=== PATIENT | female | born 1935 | race Two or more races ===

== ENCOUNTER 2023-10-30 17:49 | Inpatient (IN) | payer MEDICARE, OTHER, SELFPAY ==
[2023-10-30] VITALS (18 sets, daily range): BP systolic 132–172; BP diastolic 69–100
--- NOTE | 2023-10-30 16:20 | ED.GENMED ---
History of Present Illness
<Moshe Valerio PA-C - Last Filed: 10/31/23 15:05>
General
Chief Complaint: DVT/Possible Blood Clot
Source: patient
Time Seen by Provider: 10/30/23 15:56
Travel History
Have you had any contact with someone who has COVID-19?: No
Do you have any symptoms of coronavirus? Fever > 100 degrees, chills, cough, shortness of breath, sore throat, loss of taste or smell, muscle aches, or headache?: No
History of Present Illness
History of Present Illness:
88-year-old female with history of peripheral arterial disease presents complaining with onset of right leg pain starting last night. Starts in her foot and radiates up the leg. She has had a history of arterial clots requiring surgery. She is on
Eliquis 2 mg twice a day. She denies chest pain or shortness of breath. No fever. No other complaints at this time
Past History
<Moshe Valerio PA-C - Last Filed: 10/31/23 15:05>
Past History
ED Past Medical History: Arrthythmia and Other (AFIB); Negative NIDDM or Seizures
Social History
Tobacco: Non-smoker
Alcohol: None
Drug: None
Living: with family
Employment: Retired
Family History
Family History: Other (n/c)
Phy Exam
<Moshe Valerio PA-C - Last Filed: 10/31/23 15:05>
Physical Exam
Physical Exam:
General: Well-appearing female no acute respiratory distress
HEENT: Normocephalic atraumatic
Heart: Regular rate and rhythm holosystolic ejection murmur noted
Lungs: Clear to auscultation bilaterally no wheezing
Extremities: Right foot is cold to the touch. Pulses are not dopplerable to the foot.
Skin: No rash
Course
<Moshe Valerio PA-C - Last Filed: 10/31/23 15:05>
Orders/Labs/Results
Orders:
Orders
10/30/23 13:51
Venous Doppler Lwr Ext Rt [US Periph Venous LOWER Ext RT] Urgent
Comment:
Reason For Exam: pain and discoloration
10/30/23 Dinner
NPO
Allow oral meds: Yes
Allow clear liquids: No
10/30/23 16:20
CT Abd Aorta Angio W/ Run Off Urgent
Comment:
Reason For Exam: cold right foot, delayed images as well
10/30/23 16:38
Complete Blood Count/With Diff Urgent
Comprehensive Metabolic Panel Urgent
10/30/23 16:[address] Non Medication Order As Directed
Physician Order: PTT 6 hours after initial start of Heparin infusion
Above order entered?: Yes
10/30/23 16:41
Electrocardiogram (*1) Urgent
Reason for Study: Atrial Fibrillation
10/30/23 16:45
PTT Urgent
Comment: Obtain baseline before beginning heparin infusion if not already collected
10/30/23 16:55
Heparin 4,000 units IV NOW STA
Nursing to Place Non Medication Order As Directed
Physician Order: PTT 6 hours after initial start of Heparin infusion
Above order entered?: Yes
10/30/23 17:00
Heparin [id number] Units/250 ml 25,000 units in 250 ml IV PER PROTOCOL
Weight to be used for heparin protocol in kilograms (kg):: 49.6
Protocol:: Vascular Surgery
PTT Goal Range to be used:: PTT 73 to 111 seconds
Order type:: Initial
INITIAL Infusion Dose (UNITS/KG/hr) & then follow protocol:: 18 units/kg/hr
Infusion Dose in UNITS/hr & then follow protocol (UNITS/hr):: 900
INFUSION RATE in mL/hr & then follow protocol (mL/hr):: 9
PTT less than or equal to 64 seconds:: Notify Ordering Provider. obtain orders for rate increase &
possible bolus
PTT 64.1 to 72.9 seconds:: Increase rate by 100 units/hr (+ 1 mL/hr)
PTT 73 to 111 seconds:: Target Range. No change in rate.
PTT 111.1 to 130.9 seconds:: Decrease rate by 100 units/hr (- 1 mL/hr)
PTT 131 to 199.9 seconds:: HOLD for 1 hour. Then decrease rate by 200 units/hr (- 2 mL/hr)
PTT greater than or equal to 200 seconds:: STOP INFUSION. Notify Ordering provider to obtain further orders.
Lab follow-up:: Each change, PTT q6h until 2 consecutive are therapeutic. Then PTT
daily.
10/30/23 17:32
Admit/Transfer Patient As Directed
Co-Sign Provider:
Level of Care: Inpatient admission
Assign to:: Telemetry
Physician / Group: hospitalist-Eduardo
Diagnosis: acute limb ischemia
Reason for Telemetry: Arrhythmia
Date to Stop Telemetry: 11/02/23
Time to Stop Telemetry: 11:00
Reason for Hospitalization: needs OR
Expected length of stay greater than two midnights?: Yes
ELOS- Estimated Length of Stay in days: 3
I certify the patient meets the requirements for IP care: Yes
10/30/23 17:34
Code Status As Directed
Resuscitation Status: Full Code
10/30/23 19:41
Bisacodyl [Dulcolax] 10 mg RECTAL [id number] PRN
Docusate W/Senna [Senokot-S] 1 tablet PO BIDPRN PRN
HYDROmorphone [Dilaudid] 0.5 mg IV Q4HPRN PRN
Ondansetron Injectable [Zofran] 4 mg IV Q6HPRN PRN
Polyethylene Glycol Powder [Miralax] 17 grams PO DAILYPRN PRN
10/30/23 19:41
Vascular Surgery Consult Urgent
Consulting Provider: Cruz Calix
Was physician already notified: Yes
Heparin Protocol- PTT Orders As Directed
PTT per Heparin protocol: -Obtain CBC and baseline PTT - if not already collected.
-Obtain PTT 6 hours from start of infusion. Then, every 6 hours until 2 consecutive
PTT's are therapeutic. Then, PTT Daily.
-With each rate change, obtain PTT every 6 hours until 2 consecutive PTT's are
therapeutic. Then, PTT Daily.
Activity As Directed
Activity Level: Bedrest
Notify MD As Directed
Notify physician if: PTT is greater than or equal to 200.
Vital Signs As Directed
Frequency: Per unit guidelines
10/30/23 20:00
Docusate Sodium [Colace] 100 mg PO BID
10/30/23 22:00
Temazepam [Restoril] 30 mg PO HS
10/30/23 23:24
PTT Urgent
10/31/23 01:09
Complete Blood Count/No Diff IN AM
Comprehensive Metabolic Panel IN AM
Magnesium IN AM
10/31/23 08:00
Polyethylene Glycol Powder [Miralax] 17 grams PO DAILY
11/02/23 11:00
DC Protocol for Telemetry ONCE
Abnormal Lab Results
10/30/23
16:38
RBC 3.69 L 10^6/uL
(4.20-5.40)
Hgb 11.6 L g/dL
(12.0-16.0)
Hct 35.3 L %
(37.0-47.0)
MCH 31.4 H pg
(27.0-31.0)
MCHC 32.9 L g/dL
(33.0-37.0)
RDW 17.0 H %
(11.5-14.5)
Glucose 111 H mg/dl
(70-99)
Albumin 3.3 L g/dl
(3.5-5.0)
10/30/23 16:38
10/30/23 16:38
Vital Signs
Initial and Last Documented VS:
Initial Vital Signs
Pulse Resp BP Pulse Ox
93 18 140/92 99
10/30/23 13:48 10/30/23 13:48 10/30/23 13:48 10/30/23 13:48
Last Documented Vital Signs
Temp Pulse Resp BP Pulse Ox
97.7 F 68 16 130/75 98
10/31/23 13:00 10/31/23 06:30 10/31/23 06:30 10/31/23 06:30 10/31/23 09:04
tuan;Canelo Dallas, DO - Last Filed: 10/30/23 22:57>
Orders/Labs/Results
Orders:
Orders
10/30/23 13:51
Venous Doppler Lwr Ext Rt [US Periph Venous LOWER Ext RT] Urgent
Comment:
Reason For Exam: pain and discoloration
10/30/23 Dinner
NPO
Allow oral meds: Yes
Allow clear liquids: No
10/30/23 16:20
CT Abd Aorta Angio W/ Run Off Urgent
Comment:
Reason For Exam: cold right foot, delayed images as well
10/30/23 16:38
Complete Blood Count/With Diff Urgent
Comprehensive Metabolic Panel Urgent
10/30/23 16:[address] Non Medication Order As Directed
Physician Order: PTT 6 hours after initial start of Heparin infusion
Above order entered?: Yes
10/30/23 16:41
Electrocardiogram (*1) Urgent
Reason for Study: Atrial Fibrillation
10/30/23 16:45
PTT Urgent
Comment: Obtain baseline before beginning heparin infusion if not already collected
10/30/23 16:55
Heparin 4,000 units IV NOW STA
Nursing to Place Non Medication Order As Directed
Physician Order: PTT 6 hours after initial start of Heparin infusion
Above order entered?: Yes
10/30/23 17:00
Heparin [id number] Units/250 ml 25,000 units in 250 ml IV PER PROTOCOL
Weight to be used for heparin protocol in kilograms (kg):: 49.6
Protocol:: Vascular Surgery
PTT Goal Range to be used:: PTT 73 to 111 seconds
Order type:: Initial
INITIAL Infusion Dose (UNITS/KG/hr) & then follow protocol:: 18 units/kg/hr
Infusion Dose in UNITS/hr & then follow protocol (UNITS/hr):: 900
INFUSION RATE in mL/hr & then follow protocol (mL/hr):: 9
PTT less than or equal to 64 seconds:: Notify Ordering Provider. obtain orders for rate increase &
possible bolus
PTT 64.1 to 72.9 seconds:: Increase rate by 100 units/hr (+ 1 mL/hr)
PTT 73 to 111 seconds:: Target Range. No change in rate.
PTT 111.1 to 130.9 seconds:: Decrease rate by 100 units/hr (- 1 mL/hr)
PTT 131 to 199.9 seconds:: HOLD for 1 hour. Then decrease rate by 200 units/hr (- 2 mL/hr)
PTT greater than or equal to 200 seconds:: STOP INFUSION. Notify Ordering provider to obtain further orders.
Lab follow-up:: Each change, PTT q6h until 2 consecutive are therapeutic. Then PTT
daily.
10/30/23 17:32
Admit/Transfer Patient As Directed
Co-Sign Provider:
Level of Care: Inpatient admission
Assign to:: Telemetry
Physician / Group: hospitalist-Eduardo
Diagnosis: acute limb ischemia
Reason for Telemetry: Arrhythmia
Date to Stop Telemetry: 11/02/23
Time to Stop Telemetry: 11:00
Reason for Hospitalization: needs OR
Expected length of stay greater than two midnights?: Yes
ELOS- Estimated Length of Stay in days: 3
I certify the patient meets the requirements for IP care: Yes
10/30/23 17:34
Code Status As Directed
Resuscitation Status: Full Code
10/30/23 19:41
Bisacodyl [Dulcolax] 10 mg RECTAL [id number] PRN
Docusate W/Senna [Senokot-S] 1 tablet PO BIDPRN PRN
HYDROmorphone [Dilaudid] 0.5 mg IV Q4HPRN PRN
Ondansetron Injectable [Zofran] 4 mg IV Q6HPRN PRN
Polyethylene Glycol Powder [Miralax] 17 grams PO DAILYPRN PRN
10/30/23 19:41
Vascular Surgery Consult Urgent
Consulting Provider: Cruz Calix
Was physician already notified: Yes
Heparin Protocol- PTT Orders As Directed
PTT per Heparin protocol: -Obtain CBC and baseline PTT - if not already collected.
-Obtain PTT 6 hours from start of infusion. Then, every 6 hours until 2 consecutive
PTT's are therapeutic. Then, PTT Daily.
-With each rate change, obtain PTT every 6 hours until 2 consecutive PTT's are
therapeutic. Then, PTT Daily.
Activity As Directed
Activity Level: Bedrest
Notify MD As Directed
Notify physician if: PTT is greater than or equal to 200.
Vital Signs As Directed
Frequency: Per unit guidelines
10/30/23 20:00
Docusate Sodium [Colace] 100 mg PO BID
10/30/23 22:00
Temazepam [Restoril] 30 mg PO HS
10/30/23 23:24
PTT Urgent
10/31/23 01:09
Complete Blood Count/No Diff IN AM
Comprehensive Metabolic Panel IN AM
Magnesium IN AM
10/31/23 08:00
Polyethylene Glycol Powder [Miralax] 17 grams PO DAILY
11/02/23 11:00
DC Protocol for Telemetry ONCE
Abnormal Lab Results
10/30/23
16:38
RBC 3.69 L 10^6/uL
(4.20-5.40)
Hgb 11.6 L g/dL
(12.0-16.0)
Hct 35.3 L %
(37.0-47.0)
MCH 31.4 H pg
(27.0-31.0)
MCHC 32.9 L g/dL
(33.0-37.0)
RDW 17.0 H %
(11.5-14.5)
Glucose 111 H mg/dl
(70-99)
Albumin 3.3 L g/dl
(3.5-5.0)
10/30/23 16:38
10/30/23 16:38
Vital Signs
Initial and Last Documented VS:
Initial Vital Signs
Pulse Resp BP Pulse Ox
93 18 140/92 99
10/30/23 13:48 10/30/23 13:48 10/30/23 13:48 10/30/23 13:48
Last Documented Vital Signs
Temp Pulse Resp BP Pulse Ox
97.7 F 68 16 130/75 98
10/31/23 13:00 10/31/23 06:30 10/31/23 06:30 10/31/23 06:30 10/31/23 09:04
<Moshe Valerio PA-C - Last Filed: 10/31/23 15:05>
MDM/Problems Addressed
Differential Diagnosis Includes:
Painful cold right foot. Question possible ischemic foot. Discussed with vascular surgery immediately upon evaluating the patient. They recommended CT angio of the leg with runoff. This was ordered. Labs pending. Discussed with emergency room
attending who saw the patient as well
<Moshe Valerio PA-C - Last Filed: 10/31/23 15:05>
*Critical Care Note
Total Time (30-74mins, 75-104mins- exclusive of procedures): Not Applicable
<Moshe Valerio PA-C - Last Filed: 10/31/23 15:05>
Update Note
Update Note:
CTA did not serial pending with runoff. Labs ordered heparin ordered.
ED Attending Note
<Moshe Valerio PA-C - Last Filed: 10/31/23 15:05>
-
Portions of this chart may have been created with voice recognition software.� Occasional wrong word or��sound alike� substitutions may have occurred due to the inherent limitations of voice recognition software.
<Canelo Dallas, - Last Filed: 10/30/23 22:57>
ED Attending Note
Patient seen and examined by attending physician: Yes
I performed the substantive portion of visit, reviewed & personally made and approve the management plan that is documented in note by myself or CLAIRE.: Yes
ED Attending Note:
88 year old female with right lower ext pain and coldness. Pt has hx of vascular surgery both legs in the past. Pt does not appear to be taking Eliquis. Pain is quit significant.
VSS
Right leg cold to touch from mid-leg to foot. Foot is pale. No palpable or doppler pulses. Poor cap refill.
Case discussed with vascular---> CTA, heparin.
CTA shows what appears to be an acute arterial occlusion at the level of the popliteal artery. Patient be taken to the OR by vascular surgery.
Critical care time 40 minutes
Critical care statement: A total of 40 minutes of critical care time was provided for this patient. This includes management of unstable vital signs, evaluation of the patient at bedside, reviewing the patient's pertinent medical records, discussion
with consultants, review of old EKGs and review of pertinent medical records. This time with separate from time utilized to perform the aforementioned documented procedures
Discharge Plan
Departure
Patient Disposition: Admit
Date of Disposition: 10/30/23
Time of Disposition: 16:47
Admit to: IVU
Presentation/result/management discussed w/ accepting MD/DO: Hospitalist
Discharge Problem:
Acute lower extremity ischemia
Interventions
Interventions:
*Risk Screen - Suicide Last Done: 10/30/23 22:00
*General Assessment Last Done: 10/30/23 13:48
*Neglect/Abuse Screening Last Done: 10/30/23 13:48
ED- Fall Risk Assessment Last Done: 10/30/23 16:53
*ED COVID-19 Vaccine History Last Done: 10/30/23 22:00
*Nursing Disposition Last Done: 10/30/23 18:15
ED- Cardiac Assessment Last Done: 10/30/23 16:51
ED- Pulmonary Assessment Last Done: 10/30/23 16:51
ED-Peripheral Vascular Assessment Last Done: 10/30/23 16:51
ED-Skin Assessment Last Done: 10/30/23 16:51
Discharge Date and Time
Discharge Date/Time: 10/30/23 18:15
--- NOTE | 2023-10-30 16:50 | W.PN.UPDATE ---
Update Note
Progress Note Update
Seen and evaluated in the emergency room. Known to me with history of right lower extremity thrombectomy likely secondary to atrial fibrillation. Difficult thrombectomy with right popliteal/anterior tibial/TP trunk/peroneal thrombectomy. This was
done in July 2022 (15 months ago). Had been seen in the office a few months postop but not seen since then. Now presents with acute symptoms of right foot pain/coolness. Found in emergency room to have no pulses. Patient notes to me currently
her pain has slightly improved since she has been here. She is not having significant pain currently she notes it as a very light mild pain. Denies any weakness.
On exam/she is awake and alert. Right lower extremity with 2+ palpable femoral pulse. Nonpalpable distally. Ankle and foot are cool (distal calf and foot). In the elevation position there is pallor in the foot but not complete pallor. There is
slight pinkness at the toes but slowed capillary refill and moderate pallor. She has good motor function and I assessed her sensation (had her close her eyes) and she has full sensation intact.
Duplex reviewed.
Plan/ Likely acute right lower extremity limb ischemia. Will obtain CTA of the aorta with runoff stat. Then can determine course of action (thrombolysis versus thrombectomy). Heparin drip now also.
[2023-10-30 16:57] LABS: % Basophils 0.6 % (0-2); % Eosinophils 0.5 % (0-6); % Immature Granulocytes 0.3 % (0-0.5); % Lymphocytes 30.5 % (20.5-51.1); % Monocytes 6.6 % (1.7-9.3); % Neutrophils 61.5 % (42.2-75.2); Absolute Basophils 0.1 10^3/uL (0-0.2); Absolute Lymphocytes 2.4 10^3/uL (1.2-3.4); Absolute Monocytes 0.5 10^3/uL (0.1-0.6); Absolute Neutrophils 4.8 10^3/uL (1.4-6.5); Hematocrit 35.3 % (37.0-47.0); Hemoglobin 11.6 g/dL (12.0-16.0); Mean Corp Hgb Conc. 32.9 g/dL (33.0-37.0); Mean Corpuscular Hgb 31.4 pg (27.0-31.0); Mean Corpuscular Volume 95.7 fL (81.0-99.0); Mean Platelet Volume 9.8 fL (7.4-10.4); Nucleated Red Blood Cells % 0 %; Platelet Count 364 10^3/uL (130-400); Red Blood Cell Count 3.69 10^6/uL (4.20-5.40); White Blood Cell Count 7.8 10^3/uL (4.8-10.8)
[2023-10-30] MEDS: HEPARIN 4000 UNITS IV (17:11)
[2023-10-30] MEDS: HEPARIN 25000 UNITS/250 ML IV (17:12)
[2023-10-30 17:16] LABS: ALT (SGPT) 11 U/L (0-35); AST (SGOT) 28 U/L (14-36); Albumin 3.3 g/dl (3.5-5.0); Alkaline Phosphatase 111 U/L (38-126); Blood Urea Nitrogen 9 mg/dl (7-17); Calcium 8.7 mg/dl (8.4-10.2); Carbon Dioxide 24 mmol/L (22-30); Chloride 105 mmol/L (98-107); Glucose 111 mg/dl (70-99); Potassium 3.9 mmol/L (3.5-5.1); Sodium 135 mmol/L (135-145); Total Bilirubin 0.9 mg/dl (0.2-1.3); Total Protein 6.9 g/dl (6.3-8.2); eGFR > 60.00
--- NOTE | 2023-10-30 17:39 | HPS.HSE ---
Family Physician
-
Family Physician: Ernesto Mae
Chief Complaint
-
cold, painful leg
History of Present Illness
Patient is an 88-year-old female with a complex medical history which includes permanent atrial fibrillation not on anticoagulation with a previous history of right lower extremity thrombectomy for an acute ischemic leg who presented with complaints
of right lower extremity numbness, pain, swelling, and cold. This has been worsening over the past 2 nights. Last evening she had significant pain and was concentrated more on that. She states that she is able to ambulate but not well. Workup in
the emergency room finds her to have a right foot cool without pulses. Patient is being seen by vascular and is being admitted. Likely will go to the operating room tonight.
Medical History
Past Medical History
Past Medical History: Reports Other
Additional Past Medical History:
History of right thrombectomy for acute ischemic leg
Permanent atrial fibrillation not on anticoagulation
Essential hypertension
History of diastolic congestive heart failure and pulmonary hypertension
Obesity with gastric bypass
History of hyponatremia
History of left femur and wrist fractures
Past Surgical History: Reports Other
Additional Past Surgical History:
Right thrombectomy with right popliteal/anterior tibial/TP trunk/peritoneal thrombectomy done July 2022
Gastric [id number]
Left hip hemiarthroplasty
Left distal radius fracture with closed reduction
Social History
Tobacco: Non-smoker
Alcohol: None
Drug: None
Family History
Family History: Not pertinent
Allergies / Home Medications
Allergies reflects when Allergies were last updated in [facility].
Home Medications with original date entered in [facility]
Allergy/Medication List:
Allergies
Allergy/AdvReac Type Severity Reaction Status Date / Time
No Known Allergies Allergy Verified 10/30/23 13:47
Home Medications
metoprolol succinate 25 mg tablet,extended release 24 hr 12.5 mg (1/2 x 25 mg) PO DAILY 30 days #15 tabs 07/31/23
temazepam 15 mg capsule 30 mg (2 x 15 mg) PO HS 30 days #60 caps 07/31/23
acetaminophen 325 mg tablet 650 mg PO Q6HPRN PRN mild pain 10/30/23
amlodipine 5 mg tablet 5 mg PO DAILY 10/30/23
isosorbide mononitrate 60 mg tablet,extended release 24 hr 60 mg PO DAILY PRN chest pain 10/30/23
oxycodone-acetaminophen 10 mg-325 mg tablet 1 tab PO DAILY 10/30/23
Review of Systems
-
History Source: Patient
A 12 point ROS was completed and negative except as noted: Yes
Constitutional: Reports No Symptoms
EENT: Reports No Symptoms
Respiratory: Reports Trouble Breathing (Occasionally)
Cardiac: Reports Chest Pain (Occasionally)
Abdomen/GI: Reports No Symptoms
: Reports No Symptoms
Musculoskeletal: Reports Other (None, cold, painful right leg/foot)
Skin: Reports No Symptoms
Neurological: Reports No Symptoms
Endocrine: Reports No Symptoms
Hematologic/Lymphatic: Reports No Symptoms
Psych: Reports No Symptoms
Physical Exam
Vital Signs
Vital Signs
Pulse Resp BP Pulse Ox
93 18 140/92 98
10/30/23 13:48 10/30/23 13:48 10/30/23 13:48 10/30/23 16:51
Physical Exam
General: Well Developed, Well Nourished and No Apparent Distress
HEENT: NormoCephalic, Anicteric and Atraumatic; No Oxygen
Respiratory: Clear; No Wheezes, Rales, Rhonchi or Crackles
Cardiac: Irregular Rhythm
GI: Soft, Non Tender, Non Distended and Normal Bowel Sounds
Musculoskeletal: No Clubbing, Cyanosis (Right foot slightly dusky in color, cold to touch, no pulses palpated) and No Edema
Neuro: Awake and Alert
Psych: Calm
Laboratory Results
-
10/30/23 16:38
10/30/23 16:38
Laboratory Results
APTT Cancelled 10/30/23 16:55
Total Bilirubin 0.9 mg/dl (0.2-1.3) 10/30/23 16:38
AST 28 U/L (14-36) 10/30/23 16:38
ALT 11 U/L (0-35) 10/30/23 16:38
Alkaline Phosphatase 111 U/L (38-126) 10/30/23 16:38
Impression/Plan
-
Patient is an 88-year-old female
Acute right lower extremity limb ischemia--ultrasound was done which was negative for DVT--CAT scan done in the emergency department is pending at this time--she has already been seen by vascular surgery--ADMIT--remain n.p.o. with IV fluids as
patient likely will go to the operating room--will likely need ICU postop if she does go--we will defer that to vascular--continue IV heparin
Permanent atrial fibrillation--rate controlled--continue metoprolol as able--she is not on any oral anticoagulation at this point
Previous history of peripheral vascular disease with acute ischemic leg and previous thrombectomy--not on aspirin or other blood thinners
Coronary artery disease--continue isosorbide and metoprolol
History of diastolic congestive heart failure with pulmonary hypertension--patient is not in exacerbation by my exam and does not appear volume overloaded
Essential hypertension--continue Norvasc, metoprolol as able
DVT prophylaxis--IV heparin
CODE STATUS--full code
--- NOTE | 2023-10-30 19:35 | CON.VAS ---
Consultation
Consultation Request
Performing Provider: Yogi
Reason for Consultation: Lower extremity arterial occlusion
Medical History
-
Chief Complaint: Right foot/leg pain
History of Present Illness:
Known to me with history of right lower extremity thrombectomy likely secondary to atrial fibrillation. Difficult thrombectomy with right popliteal/anterior tibial/TP trunk/peroneal thrombectomy. This was done in July 2022 (15 months ago). Had
been seen in the office a few months postop but not seen since then. Now presents with acute symptoms of right foot pain/coolness. Found in emergency room to have no pulses. Patient notes to me currently her pain has slightly improved since she
has been here. She is not having significant pain currently she notes it as a very light mild pain. Denies any weakness.
On exam/she is awake and alert. Right lower extremity with 2+ palpable femoral pulse. Nonpalpable distally. Ankle and foot are cool (distal calf and foot). In the elevation position there is pallor in the foot but not complete pallor. There is
slight pinkness at the toes but slowed capillary refill and moderate pallor. She has good motor function and I assessed her sensation (had her close her eyes) and she has full sensation intact.
Duplex reviewed.
Past Medical History
Past Medical History: Arrhythmias (afib-off eliquis unsure why?), CAD, CHF, HTN and Other (PAD)
Past Surgical History: Other (thrombectomy with right popliteal/anterior tibial/TP trunk/peroneal artery 08/12, Gastric [id number], Left hip hemiarthroplasty, Left distal radius fracture with closed reduction)
Social History
Tobacco: Non-Smoker
Alcohol: None
Drug: None
Living: With Family
Employment: Retired
Family History
Family History: Reviewed & Not Pertinent
Allergies / Home Medications
Allergy/AdvReac Type Severity Reaction Status Date / Time
No Known Allergies Allergy Verified 10/30/23 13:47
�Medication �Instructions �Recorded �Confirmed �Type
metoprolol succinate 25 mg 12.5 mg (1/2 x 25 mg) PO DAILY 30 07/31/23 10/30/23 Rx
tablet,extended release 24 hr days #15 tabs
temazepam 15 mg capsule 30 mg (2 x 15 mg) PO HS 30 days 07/31/23 10/30/23 Rx
#60 caps
acetaminophen 325 mg tablet 650 mg PO Q6HPRN PRN mild pain 10/30/23 10/30/23 History
amlodipine 5 mg tablet 5 mg PO DAILY 10/30/23 10/30/23 History
isosorbide mononitrate 60 mg 60 mg PO DAILY PRN chest pain 10/30/23 10/30/23 History
tablet,extended release 24 hr
oxycodone-acetaminophen 10 mg-325 1 tab PO DAILY 10/30/23 10/30/23 History
mg tablet
Review of Systems
-
History Source: Patient
All other systems: Negative unless noted
Constitutional: Reports No Symptoms
EENT: Reports No Symptoms
Respiratory: Reports No Symptoms
Cardiac: Reports No Symptoms
Vascular: Reports Leg Pain / Claudication, Numbness and Tingling
Abdomen/GI: Reports No Symptoms
: Reports No Symptoms
Musculoskeletal: Reports Muscle Pain
Neurological: Reports No Symptoms
Endocrine: Reports No Symptoms
Physical Exam
Vital Signs
Temp Pulse Resp BP Pulse Ox
97.4 F 68 16 130/75 98
10/31/23 07:35 10/31/23 06:30 10/31/23 06:30 10/31/23 06:30 10/31/23 09:04
Lab Results
10/31/23 01:09
Physical Exam
General: No Apparent Distress
HEENT: Normocephalic and Atraumatic
Respiratory: Non Labored Respirations
Cardiac: Negative JVD
GI: Soft and Non Tender
Musculoskeletal: Cyanosis and Edema
Skin: Other (Ankle and foot are cool (distal calf and foot). In the elevation position there is pallor in the foot but not complete pallor. There is slight pinkness at the toes but slowed capillary refill and moderate pallor. She has good motor
function)
Neuro: Awake, Alert and Oriented
Psych: Calm
Pulses: Bilateral Femoral: +2 and Right Posterior Tibial: Doppler (ABSENT)
Assessment / Plan
-
Plan/ Likely acute right lower extremity limb ischemia. Will obtain CTA of the aorta with runoff stat. Then can determine course of action (thrombolysis versus thrombectomy). Heparin drip now also.
[2023-10-30] MEDS: CATHFLO/ACTIVASE 16 MG INF CATH ×2 (19:47→23:18)
[2023-10-30] MEDS: CATHFLO/ACTIVASE 16 ML INF CATH ×2 (19:47→23:18)
--- NOTE | 2023-10-30 20:30 | W.SUR.POST ---
Surgical Immediate Post Op
Note
Pre Op Diagnosis: Lower extremity arterial occlusion
Post Op Diagnosis: Same
Procedure Performed: Right lower extremity lysis catheter placement
Primary Surgeon: MD Angie
Anesthesia: Local and sedation
Estimated Blood Loss: 5 cc
Fluids: See anesthesia flowsheet
Drains/Shunts: None
Specimens/Cultures: None
Doppler/Duplex/Angio (Y/N): Y
Complications: None
Operative Findings: Successful catheter placement
[2023-10-30] MEDS: NORMOSOL-R 1000 IV (20:51)
[2023-10-30] MEDS: NSS 1000 INF CATH (20:54)
[2023-10-30] MEDS: HEPARIN 25000 UNITS/250 ML ART SHEATH (20:55)
[2023-10-30] MEDS: COLACE PO (20:58)
[2023-10-30] MEDS: RESTORIL 30 MG PO (21:52)
--- NOTE | 2023-10-30 22:00 | PTCARENOTE ---
rec`d pt from OR, bedside report given. pt AAOx3,very pleasant. vascular checks started, left PT and DP + with doppler. Right pt/dp absent with doppler. + popliteal on right leg. right leg notably cooler than left. pt can still move toes and feet.
pt denies any pain. left groin sit with sheath. NS running 46/hr with alteplase running at 1. heparin running at 500 or 5mL. q6H Ptt started. a fib on monitor. hr between 70-90s. no edema, afebrile. 2L NC satting at 99%. + BS. jorge draining clear
yellow urine. pt wanted dentures in. pt has top dentures. pt has bruise on left hand from previous fall about a week ago. call prado in reach, safe environment maintained.
[2023-10-31] VITALS (62 sets, daily range): BP systolic 90–162; BP diastolic 53–115; BMI 20.1
[2023-10-31 00:01] LABS: APTT 127.8 Sec (23.4-35.0)
[2023-10-31 01:20] LABS: Hematocrit 32.7 % (37.0-47.0); Hemoglobin 10.6 g/dL (12.0-16.0); Mean Corp Hgb Conc. 32.4 g/dL (33.0-37.0); Mean Corpuscular Hgb 31.5 pg (27.0-31.0); Mean Corpuscular Volume 97.3 fL (81.0-99.0); Mean Platelet Volume 9.7 fL (7.4-10.4); Platelet Count 306 10^3/uL (130-400); Red Blood Cell Count 3.36 10^6/uL (4.20-5.40); White Blood Cell Count 4.8 10^3/uL (4.8-10.8)
[2023-10-31 01:32] LABS: Fibrinogen 372 MG/DL (199-459)
[2023-10-31 01:38] LABS: ALT (SGPT) < 10 U/L (0-35); AST (SGOT) 24 U/L (14-36); Albumin 2.8 g/dl (3.5-5.0); Alkaline Phosphatase 106 U/L (38-126); Blood Urea Nitrogen 7 mg/dl (7-17); Calcium 8.1 mg/dl (8.4-10.2); Carbon Dioxide 23 mmol/L (22-30); Chloride 108 mmol/L (98-107); Estimated Creatinine Clearance 52 ml/min; Glucose 138 mg/dl (70-99); Magnesium 1.8 mg/dl (1.6-2.3); Sodium 134 mmol/L (135-145); Total Bilirubin 0.9 mg/dl (0.2-1.3); Total Protein 6.1 g/dl (6.3-8.2); eGFR > 60.00
[2023-10-31] MEDS: CATHFLO/ACTIVASE 16 ML INF CATH ×2 (02:45→06:40)
[2023-10-31] MEDS: CATHFLO/ACTIVASE 16 MG INF CATH ×2 (02:45→06:40)
--- NOTE | 2023-10-31 04:00 | PTCARENOTE ---
pt reassessed. no changes in pt assessment. call prado in reach.
[2023-10-31 05:58] LABS: PT 14.3 Sec (11.4-14.6)
[2023-10-31] MEDS: MIRALAX PO (07:44)
[2023-10-31] MEDS: COLACE PO ×2 (07:44→21:44)
--- NOTE | 2023-10-31 07:45 | CON.INTV ---
Consultation
Consultation Request
Date/Time Consultation Requested: 10/31/23
Date/Time Consultation Performed: 10/31/23
Reason for Consultation: Critical care
Medical History
-
History of Present Illness:
History obtained from the patient, also reviewing records. Patient is a pleasant 88-year-old female with history of atrial fibrillation, history of right lower extremity thrombectomy July 2022 who presents with 3 days of right leg pain, cold
foot. Patient states prior to that she was doing well. She is on Eliquis therapy. She denies shortness of breath, chest pain, lightheadedness, dizziness, falls or trauma. Upon arrival to [facility], pulse 93, breathing 18, blood
pressure 140/92, 99%. Doppler study without clot. Patient had right lower extremity lysis catheter placed due to lower extremity arterial occlusion confirmed by imaging. Patient was admitted to ICU for further management 10/30/23
Presently she is without chest pain, shortness of breath, nausea, abdominal pain, headaches. Right foot pain has improved. She is lying flat. She was examined earlier this morning
.
PMH: Peripheral arterial disease with prior right lower extremity thrombectomy July 2022, atrial fibrillation on anticoagulation. History of insomnia, valvular disease with tricuspid regurgitation/mitral regurgitation, chronic insomnia, history
of obesity status post bariatric surgery, GERD
Past Medical History
Past Medical History: None (See above)
Past Surgical History: None (See above)
Social History
Tobacco: Non-smoker
Alcohol: None
Drug: None
Personal: Single
Living: Alone
Employment: Retired
Family History
Family History: Reviewed & Not Pertinent
Allergies / Home Medications
Allergies
Allergy/AdvReac Type Severity Reaction Status Date / Time
No Known Allergies Allergy Verified 10/30/23 13:47
Home Medications
�Medication �Instructions �Recorded �Confirmed �Last Taken �Type
metoprolol succinate 25 mg 12.5 mg (1/2 x 25 mg) PO DAILY 30 07/31/23 10/30/23 10/30/23 Rx
tablet,extended release 24 hr days #15 tabs
temazepam 15 mg capsule 30 mg (2 x 15 mg) PO HS 30 days 07/31/23 10/30/23 10/28/23 Rx
#60 caps
acetaminophen 325 mg tablet 650 mg PO Q6HPRN PRN mild pain 10/30/23 10/30/23 10/30/23 History
amlodipine 5 mg tablet 5 mg PO DAILY 10/30/23 10/30/23 10/29/23 History
isosorbide mononitrate 60 mg 60 mg PO DAILY PRN chest pain 10/30/23 10/30/23 10/29/23 History
tablet,extended release 24 hr
oxycodone-acetaminophen 10 mg-325 1 tab PO DAILY 10/30/23 10/30/23 3 Days Ago History
mg tablet ~10/27/23
Review of Systems
-
All other systems: Negative unless noted
Vitals / Labs / Diagnostic Testing
Vital Signs
Temp Pulse Resp BP Pulse Ox
97.4 F 68 16 130/75 99
10/31/23 07:35 10/31/23 06:30 10/31/23 06:30 10/31/23 06:30 10/31/23 06:30
Lab Data
10/31/23 01:09
Laboratory Results
10/30/23 10/30/23 10/30/23
16:45 16:55 18:04
PT
INR
APTT 26.0 Cancelled Cancelled
10/30/23 10/31/23
23:24 05:36
PT 14.3
INR 1.10
APTT 127.8 H
Diagnostic Testing:
Physical Exam
-
HEENT: Normocephalic and Anicteric
Cardiovascular: S1/S2, Irregular Rhythm, Murmur (n), Rub (n), Peripheral Edema (n) and Other (Right lower extremity slightly cooler than the left.)
Respiratory: Wheeze (n), Rales (n), Rhonchi (n) and Non-Labored Respirations
GI: Soft, Non Distended and Non Tender
Neurology: Awake, Alert and Oriented
Skin: Good Color (No clubbing, cyanosis)
General: Comfortable
Assessment
-
88-year-old female with history of peripheral arterial disease with prior right lower extremity thrombectomy July 2022 now presents with right lower extremity arterial occlusion status post catheter placement with tPA/heparin 10/30/23
Acute right lower extremity limb ischemia
s/p arterial thrombolysis
Suction thrombectomy
Balloon angioplasty
Presenting with 3 days of right lower extremity pain and cold extremity
History of right lower extremity limb ischemia in the past
Thrombectomy July 2022
Afib on Eliquis therapy
Conditions present PRODUCT MARKETING INTERN
HTN
Lumbar radiculopathy�
Permanent atrial fibrillation�
Atherosclerotic heart disease of morongo coronary artery without angina pectoris
Moderate mitral regurgitation
Moderate AAS, 1.1 cm
PA pressure 45
GERD
RLS/insomnia
Plan/recommendations
At this time, patient appears to be improved overall
Right foot pain warmer than presentation, pulse is with positive Doppler
Now is status post thrombectomy as above. Patient was examined earlier this morning and again after suction thrombectomy and angioplasty
She denies any chest pain, shortness of breath
Hemoglobin 10.9, stable, platelets stable. Fibrinogen level normal
Moving forward
Continue with IV heparin for now. Lysis catheter has been removed
Hypothermia noted, currently on Bartolo hugger
Continue to monitor blood pressure
EKG reviewed, atrial fibrillation with nonspecific changes
Echocardiogram July 2022 with EF 75%, moderate MR, moderate aortic stenosis valve area 1.1 cm
PA pressure 45, per echo July 2022
Patient apparently noncompliant with Eliquis therapy
Creat at baseline, no history of renal disease
Follow
Follow blood sugars
DVT prophylaxis: On subcutaneous heparin
Reviewed with critical care nursing, respiratory care
TCCT 31 min
Diagnostic Data
CXR 10/30/2023-no acute findings
Echo July 2022:�Normal biventricular size and systolic function without regional wall motion abnormality, EF 75%.�Mild to moderate mitral regurgitation.�Mild to moderate aortic stenosis 1.1 cm.�Moderate to severe tricuspid regurgitation. PA
pressure 45
PFT 12/17/12- FVC 2.05L or 81% of predicted, FEV1 1.55L or 82% of predicted, Ratio was 76%. TLC 3.9L or 85% of predicted, Diffusing capacity 20.9 or 109% of predicted
Reports and relevant images were personally reviewed.
--- NOTE | 2023-10-31 07:54 | W.PN.ANS.POP ---
Anesthesia Post Operative
- Anesthesia Post Op Note
Vital Signs Stable-See Nursing Note: Yes
Airway Patent: Yes
Adequate Pain Control: Yes
Change in Mental Status: No
Current Postoperative Nausea & Vomiting: No
Anesthesia Complications: No
General Anesthetic Recall: No
Unplanned Admission: No
Post Op Hydration Adequate: Yes
--- NOTE | 2023-10-31 08:00 | PTCARENOTE ---
Received pt @ change of shift. Drowsy, awakens to verbal stimuli; Ox3, forgetful @ x's; [place]. Neurovascular checks maintained; R/L LE warm; pt. reports improving sensation in RLE; R foot/toes w decreased sedation/mild pain, denies pain meds. RLE
+popliteal and PT; LLE +DP/PT by Doppler. A fib on monitor. SpO2 98% on 2LNC, weaned to RA and SpO2 maintaining 98%. Hypoactive BS, abd soft/round. NPO status maintained. Cervantes catheter in place w clear/yellow urine. L groin sheath remains in
place, dressing c/d/i. Art sheath transduced, calibrated, and monitored w all ports patent and secured; heparin gtt infusing @ set rate- see flow sheet. NSS and Alteplase infusing via separate port via sheath- see MAR. Normosol infusing @ 80mL
via #20 R AC; #22 L wrist placed. Strict bedrest maintained and pt instructed to keep LLE straight, verbally reports understanding. Instructed on how to report care concerns and call prado in reach.
[2023-10-31 08:24] LABS: APTT 35.7 Sec (23.4-35.0); Fibrinogen 361 MG/DL (199-459); INR 1.17; PT 14.7 Sec (11.4-14.6)
[2023-10-31 08:45] LABS: Hematocrit 33.4 % (37.0-47.0); Hemoglobin 10.9 g/dL (12.0-16.0); Platelet Count 312 10^3/uL (130-400)
--- NOTE | 2023-10-31 08:56 | W.PN.UPDATE ---
Update Note
Progress Note Update
No events overnight
Comfortable
No complaints except she is hungry
No pain
Dopp signals present in the right foot
R foot warm
Motor/sensory grossly intact
Return to OR for angio/lysis check
PJF3
--- NOTE | 2023-10-31 10:00 | PTCARENOTE ---
Report given to vascular ROTOR CASTING MACHINE OPERATOR and ROTOR CASTING MACHINE OPERATOR x 2 to bedside to transport pt. to OR @ 2753. Granddaughter, Nori, to bedside, updated on plan of care. Awaiting pt. return s/p procedure.
--- NOTE | 2023-10-31 11:12 | W.SUR.POST ---
Surgical Immediate Post Op
Note
Pre Op Diagnosis: Arterial occlusion
Post Op Diagnosis: same
Procedure Performed: RLE lysis catheter removal, arteriogram, balloon angioplasty below knee popliteal, TP trunk, PT, AT, peroneal arteries. Penumbra to below knee pop
Primary Surgeon: Helen
Anesthesia: local and sedation
Estimated Blood Loss: 5cc
Fluids: see anesthesia flow sheet
Drains/Shunts: none
Specimens/Cultures: none
Doppler/Duplex/Angio (Y/N): Y
Complications: none
Operative Findings: +peroneal and PT doppler signal
--- NOTE | 2023-10-31 11:39 | CM ---
CM is following with discharge planning.
Reviewed pt's chart, met with pt and spoke to pt's granddaughter Nori.
Pt is an 87 year old female, admitted with primary dx of s/p Right lower extremity lysis catheter placement
Pt reports she lives with a granddaughter in a 2SH, has supportive daughter. 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 No SNF history. Pt was at [place] [facility] in June
2022.
PT and OT will evaluate the pt to determine a level of care at discharge.
Per granddaughter, pt has been receiving Eliquis at home, getting it via mail order and there is no issue with affordability.
PCP: Ernesto Mae
Pharmacy: [facility]
D/C plan: most likely home with [facility] and family support.
CM will follow with discharge plan updates as hospitalization progresses
[2023-10-31] MEDS: NORMOSOL-R IV (12:20)
[2023-10-31] MEDS: NSS 1000 IV (12:57)
--- NOTE | 2023-10-31 14:10 | OR.RPT ---
Operative Report
Operative Report
Date of Operation: 10/31/2023
Pre Op Diagnosis: Acute limb ischemia, right lower extremity status post initiation of arterial thrombolysis
Post Op Diagnosis: Acute limb ischemia, right lower extremity status post initiation of arterial thrombolysis
Procedure:
1.) Right lower extremity arteriogram/lysis check
2.) Penumbra suction thrombectomy to right popliteal artery (Light[place] 7 catheter)
3.) Balloon angioplasty of right anterior tibial artery (2.5 mm x 150 mm proximal/mid; 2 mm x 40 mm distal)
4.) Balloon angioplasty of right dorsalis pedis artery (2 mm x 40 mm)
5.) Balloon angioplasty of right peroneal artery (2.5 mm x 150 mm)
6.) Balloon angioplasty of right posterior tibial artery (2 mm x 120 mm)
7.) Balloon angioplasty of right tibioperoneal trunk (3.5 mm x 60 mm)
8.) Balloon angioplasty of right below the knee popliteal artery (3.5 mm x 60 mm)
Surgeon: Ceciloi Cervantes III, MD
Yarn Dyer: General
Anesthesia: Sedation with local
Fluoroscopy:
32.2 min
41 mGy
7.55 Gy.cm2
Complications: None
Estimated Blood Loss: 100 cc
History and Indications for Procedure: 88-year-old female with acute limb ischemia of her right lower extremity. She is status post initiation of right lower extremity thrombolysis via Cragg Jonathan catheter on 10/30/2023. She was brought back to
the operating room today for a lysis check and possible endovascular intervention.
Procedure in Detail: Kylee Foreman was correctly identified and placed supine on the operating table. After adequate induction of anesthesia the left groin, sheath and existing lysis catheter were prepped and draped in the usual sterile fashion. A
timeout was performed with the nursing and anesthesia staff confirming the patient's identity as well as the nature and laterality of the procedure.
A hydrophilic tip 0.014 wire was placed through the existing 4 [place] Cragg Jonathan catheter and placed in the proximal peroneal artery. The catheter was removed. A right lower extremity arteriogram was then performed which demonstrated the
following:
RIGHT LOWER EXTREMITY: Patent common femoral artery superficial femoral artery and popliteal artery above the knee. There was significant residual filling defect and occlusion involving the popliteal artery behind the knee and below the knee.
Significant tibial disease was identified in all 3 tibial arteries with poor flow distally and no identifiable flow in the foot.
ENDOVASCULAR INTERVENTION: Systemic heparin was administered. Exchanged out for a Storq wire. Exchanged out for a 7 Fr 45 cm sheath over a Storq wire. Exchanged back out for a 0.014 wire. Under roadmap guidance I brought into position the
[place] 7 Penumbra catheter. This was positioned in the popliteal artery behind the knee. Suction thrombectomy was then performed on the popliteal artery with the Penumbra catheter. Several passes were made with the catheter and obvious
clot was aspirated into the filter. Following this a subsequent arteriogram demonstrated a significantly improved result with a patent popliteal artery and tibioperoneal trunk. Once again demonstrated was occlusive disease in all 3 tibial arteries.
Given that the wire was in the peroneal artery I started with this. A 0.014 Quickcross catheter was advanced over the wire and the wire was advanced into the distal peroneal artery. An arteriogram confirmed position in the distal peroneal artery.
A 2.5 mm x 150 mm angioplasty balloon was then used to perform angioplasty on the entire length of peroneal artery from the ankle to its origin. Subsequent arteriogram demonstrated a good technical result with a patent peroneal artery and flow to
the ankle. Next I selected the anterior tibial artery using a 0.014 wire and 0.014 Quickcross catheter. The catheter and wire were advanced distally. Proper position was confirmed through the catheter with an arteriogram. 4 mg of tPA was
injected directly through the Quickcross catheter into the distal anterior tibial artery to run into the foot. The hydrophilic tip wire was advanced into the foot. The 2.5 mm x 150 mm angioplasty balloon was used to treat the anterior tibial
artery from the ankle to its origin using multiple inflations to cover this area. A 2 mm x 40 mm angioplasty balloon was used to treat the smaller diameter segment of distal anterior tibial artery and the dorsalis pedis artery onto the foot.
Subsequent arteriogram demonstrated a patent anterior tibial artery with flow across the ankle into the foot through the DP. Lastly I focused my attention on the posterior tibial artery. Under roadmap guidance using the 0.014 wire and Quickcross
catheter I selected the posterior tibial artery. The wire and catheter were advanced distally and the wire was positioned behind the ankle. A 2 mm x 120 mm angioplasty balloon was used to treat the entire length of posterior tibial artery from the
ankle to its origin. Subsequent arteriogram demonstrated a patent posterior tibial artery but there was distal occlusion of the plantar branches distal to the ankle. An additional 4 mg of tPA was injected through a Quickcross catheter positioned
in the distal posterior tibial artery to flow into the foot. Subsequent arteriograms demonstrated residual stenosis in the tibioperoneal trunk and below-knee popliteal artery. Under roadmap guidance I then positioned a 3.5 mm x 60 mm angioplasty
balloon and treated the tibioperoneal trunk as well as the below-knee popliteal artery.
COMPLETION ARTERIOGRAM: Patent popliteal artery and all 3 tibial vessels with flow across the ankle into the foot.
Satisfied with this result we concluded the procedure. The sheath tip was pulled back into the left external iliac artery. The wire was exchanged out for a Storq wire and advanced into the abdominal aorta. The soft tissue around the access site
was spread gently with a hemostat. Local anesthesia was infiltrated around the puncture site. A Pro-glide closure device was utilized to close the left femoral artery access however the device failed when cinching down the knots. Wire access had
already been relinquished. Therefore direct manual pressure was held over the access site for 30 minutes. Hemostasis was achieved. A sterile dressing was applied.
The patient tolerated the procedure well and was taken to the recovery area in stable condition.
Attestation: I was present and responsible for the entire procedure.
Signed:
Cecilio Cervantes III, MD
[facility] Vascular Surgery
[phone] (cell)
--- NOTE | 2023-10-31 14:15 | W.PN.UPDATE ---
Update Note
Progress Note Update
FemStop removed at bedside. Palpable PT and DP pulses to the right foot. Heparin drip ordered, no bolus. Continue Bartolo hugger
--- NOTE | 2023-10-31 14:41 | W.PN.HOSP.TC ---
Today's Communication/Plan
-
IV heparin
follow vascular sx recs
Assessment / Plan
Assessment / Plan
Assessment:
Acute right lower extremity limb ischemia
- CTA: Complete occlusion of the right popliteal artery, similar to prior. The right anterior and posterior tibial arteries are completely occluded throughout the lower leg, progressed from prior. The right peroneal artery is patent to level of the
ankle, below which is not well visualized, possibly occluded.
- Vascular consulting
- s/p RLE lysis cath placement 10/29 and RLE lysis catheter removal, arteriogram, balloon angioplasty below knee popliteal, TP trunk, PT, AT, peroneal arteries. Penumbra to below knee pop on 10/30
- on IV Heparin - requires intensive monitoring
Hypothermia
- continue Bartolo Hugger
Permanent atrial fibrillation
- on IV Heparin - requires intensive monitoring. Eventually resume Eliquis
- continue Metoprolol when cleared
Previous history of peripheral vascular disease with acute ischemic leg and previous thrombectomy
- apparently forgot to take Eliquis
Coronary artery disease
- continue isosorbide and metoprolol
History of diastolic congestive heart failure with pulmonary hypertension--patient is not in exacerbation
- monitor I/Os, weights
Essential hypertension
- continue Norvasc, metoprolol as able
DVT ppx: IV HEparin
Code: Full
Anticipated Discharge: 24 - 48 hours
Subjective/Interval History
-
Date of Service: October 31, 2023
feels well no complaints
Objective Data
-
Labs:
Laboratory Results
10/31/23 10/31/23 10/31/23
05:36 07:59 13:15
Hgb 10.9 L Cancelled
Hct 33.4 L Cancelled
Plt Count 312 Cancelled
PT 14.3 14.7 H Cancelled
INR 1.10 1.17 Cancelled
APTT 35.7 H Cancelled
10/31/23
19:15
Hgb Cancelled
Hct Cancelled
Plt Count Cancelled
PT Cancelled
INR Cancelled
APTT Cancelled
Vital Signs:
Vital Signs
Temp Pulse Resp BP Pulse Ox
97.7 F 68 16 130/75 98
10/31/23 13:00 10/31/23 06:30 10/31/23 06:30 10/31/23 06:30 10/31/23 09:04
I&O
10/30/23 10/31/23 11/01/23
06:59 06:59 06:59
Intake Total 1310 / 1441 262 / 262
Output Total 1275 / 1575 750 / 750
Balance 35 / -134 -488 / -488
Physical Exam
-
General: No Apparent Distress
HEENT: Normocephalic and Atraumatic
Respiratory: Negative Wheezes or Rales
Cardiac: Regular Rhythm and S1/S2
GI: Soft
Neuro: AO x 3
Hematologic / Lymphatic: No Lymphadenopathy
Psych: Calm
Data Reviewed
-
Critical Care Time (in minutes): 42
Labs: Labs Reviewed by me
[2023-10-31] MEDS: HEPARIN 25000 UNITS/250 ML IV (15:44)
[2023-10-31] MEDS: LOW STRENGTH ASPIRIN 81 MG PO (15:57)
--- NOTE | 2023-10-31 16:33 | PTCARENOTE ---
Received pt back from vascular OR @ 1215, neurovascular checks competed w Dr. Cervantes and vascular team @ bedside on ICU arrival- see flow sheet. Fleeting R DP by Doppler, Dr. Cervantes aware. Fem stop removed by vascular HEAD TENNIS COACH @ 1400 . Neurovascular
checks maintained per orders. Bartolo hugger in place per order. HOB raised to 30 degree s/p 2H procedure. Bedrest maintained per orders. Tolerating diet. Heparin gtt initiated- see flow sheet. Low urine output, 20mL/hr, Dr. Cervantes aware and
further orders received- see SEP. Family remains @ bedside. Call johan cleaning in reach.
[2023-10-31] MEDS: NSS 500 IV (16:42)
--- NOTE | 2023-10-31 20:00 | PTCARENOTE ---
Received pt resting in bed, AAOx3, [place]. No complaints at this time. Afib on tele, HR 70s. BP stable. Temp 99.8 core. Bartolo hugger on for lower extremities. B/L PT and DP pulses by doppler. R DP fleeting- confirmed with dayshift at handoff and is
unchanged. LEs warm, pink, no sensation loss or numbness/tingling per pt. On RA. Lungs CTA. Using I.S.- reached ~750. Hypoactive bowel sounds. Low chol. diet. Cervantes draining yellow urine. L groin dsg c/d/i- soft, nontender. L wrist #22 with heparin
gtt at 900units/hr. PTT check due 2200. Call prado in reach, monitoring.
[2023-10-31] MEDS: RESTORIL 30 MG PO (21:44)
[2023-10-31 22:16] LABS: APTT 50.6 Sec (23.4-35.0)
[2023-10-31] MEDS: HEPARIN 4000 UNITS IV (22:47)
--- NOTE | 2023-10-31 22:54 | PTCARENOTE ---
PTT = 50.6. Re-bolused and increased heparin gtt to 1100units/hr. Repeat @ 0500. During last neurovascular check, pt. said she had some numbness at her L groin site and it had been going on since 1600 today. She did not mention it to anyone earlier
because she didn't think it was a big deal. NANDINI Quijano and sexton helper vascular Dr. Langley notified. Will monitor for now. Neurovascular assessment otherwise unchanged. Pt. resting, VSS.
[2023-11-01] VITALS (16 sets, daily range): BP systolic 116–149; BP diastolic 54–75; PULSE 69; O2SAT 96; BMI 20.8
[2023-11-01] MEDS: TYLENOL 650 MG PO (02:26)
[2023-11-01] MEDS: MELATONIN 5 MG PO (02:44)
[2023-11-01 05:48] LABS: Hematocrit 26.8 % (37.0-47.0); Hemoglobin 9.1 g/dL (12.0-16.0); Mean Corpuscular Hgb 32.3 pg (27.0-31.0); Mean Platelet Volume 9.9 fL (7.4-10.4); Platelet Count 292 10^3/uL (130-400); Red Blood Cell Count 2.82 10^6/uL (4.20-5.40); Red Cell Dist. Width 17.2 % (11.5-14.5); White Blood Cell Count 8.4 10^3/uL (4.8-10.8)
[2023-11-01 06:24] LABS: APTT > 200 Sec (23.4-35.0)
--- NOTE | 2023-11-01 06:28 | PTCARENOTE ---
PTT >200. Heparin gtt placed on hold (x2 hours per order). Dr. Langley notified as ordered for >200. Neurovascular checks unchanged this AM.
[2023-11-01 06:35] LABS: Blood Urea Nitrogen 15 mg/dl (7-17); Calcium 8.3 mg/dl (8.4-10.2); Carbon Dioxide 24 mmol/L (22-30); Chloride 110 mmol/L (98-107); Estimated Creatinine Clearance 39 ml/min; Glucose 95 mg/dl (70-99); Potassium 4.1 mmol/L (3.5-5.1); Sodium 135 mmol/L (135-145); eGFR > 60.00
--- NOTE | 2023-11-01 07:12 | W.PN.VS ---
Today's Communication / Plan
-
as above
Assessment/Plan
-
Ok for OOB
Continue neurovascular checks
Ok to transition from heparin to NOAC from vascular standpoint
Subjective Data
-
Date of Service: November 01, 2023
no acute events. Says foot feels fine. Overall feels tired.
Objective Data
-
Vital Signs
Temp Pulse Resp BP Pulse Ox
98.6 F 62 17 132/62 98
11/01/23 06:00 11/01/23 06:30 11/01/23 06:30 11/01/23 06:00 11/01/23 06:30
Intake and Output
10/31/23 11/01/23 11/02/23
06:59 06:59 06:59
Intake Total 1310 / 1441 2473 / 2473
Output Total 1275 / 1575 1760 / 1760
Balance 35 / -134 713 / 713
Intake:
Oral fluids 600 / 600
IV fluids (Total) 1310 / 1441 1373 / 1373
HEPARIN 83604 UNITS/250 ML 25, 50 / 55 10 / 10
000 units In 250 ml @ 500 UNITS
/HR 5 mls/hr ART SHEATH .Q24H
NADIA Rx#:[id number]
Normosol-R 1,000 ml @ 80 mls/hr 800 / 880 160 / 160
IV .[id number] NADIA Rx#:[id number]
Nss 1,000 ml @ 46 mls/hr INF 460 / 506 92 / 92
CATH .[id number] NADIA Rx#:[id number]
Nss 1,000 ml @ 80 mls/hr IV . 960 / 960
[id number] NADIA Rx#:[id number]
heparin 151 / 151
IV piggybacks 500 / 500
Output:
Urine, Cervantes 1275 / 1575 1760 / 1760
Lab Results
11/01/23 05:20
11/01/23 05:20
Calcium 8.3 mg/dl (8.4-10.2) L 11/01/23 05:20
Magnesium 1.8 mg/dl (1.6-2.3) 10/31/23 01:09
Total Bilirubin 0.9 mg/dl (0.2-1.3) 10/31/23 01:09
AST 24 U/L (14-36) 10/31/23 01:09
ALT < 10 U/L (0-35) 10/31/23 01:09
Alkaline Phosphatase 106 U/L (38-126) 10/31/23 01:09
Total Protein 6.1 g/dl (6.3-8.2) L 10/31/23 01:09
Albumin 2.8 g/dl (3.5-5.0) L 10/31/23 01:09
Physical Exam
-
NAD
access site c/d/i
+DP/PT signals bilaterally, feet warm
--- NOTE | 2023-11-01 07:15 | W.PN.INTV ---
Today's Communication / Plan
Recommendations
Transition to oral anticoagulation
Out of bed to chair
Follow hemoglobin
Okay for transfer out of ICU from critical care standpoint. Once transferred, we will sign off. Please call with questions
Assessment
-
88-year-old female with history of peripheral arterial disease with prior right lower extremity thrombectomy July 2022 now presents with right lower extremity arterial occlusion status post catheter placement with tPA/heparin 10/30/23
Acute right lower extremity limb ischemia
s/p arterial thrombolysis
Suction thrombectomy
Balloon angioplasty
Presenting with 3 days of right lower extremity pain and cold extremity
History of right lower extremity limb ischemia in the past
Thrombectomy July 2022
Afib on Eliquis therapy
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
HTN
Lumbar radiculopathy�
Permanent atrial fibrillation�
Atherosclerotic heart disease of [place] coronary artery without angina pectoris
Moderate mitral regurgitation
Moderate AAS, 1.1 cm
PA pressure 45
GERD
RLS/insomnia
Plan/recommendations
At this time, patient appears to be improved overall
Denies any leg pain, lower extremities warm, pulses present
Now is status post thrombectomy as above. Patient was examined earlier this morning and again after suction thrombectomy and angioplasty
She denies any chest pain, shortness of breath
Hemodynamically stable
Moving forward
Transition to oral anticoagulation
Remains on Bartolo hugger
Continue to monitor blood pressure
EKG reviewed, atrial fibrillation with nonspecific changes
Echocardiogram July 2022 with EF 75%, moderate MR, moderate aortic stenosis valve area 1.1 cm
PA pressure 45, per echo July 2022
Patient apparently noncompliant with Eliquis therapy
Discussed importance of compliance
Creat at baseline, no history of renal disease
Follow
Follow blood sugars
DVT prophylaxis: On subcutaneous heparin, being transition to oral agent
Reviewed with critical care nursing, respiratory care
Reviewed with primary service
Okay for transfer out of ICU. We will sign off. Please call with questions
Diagnostic Data
CXR 10/30/2023-no acute findings
Echo July 2022:�Normal biventricular size and systolic function without regional wall motion abnormality, EF 75%.�Mild to moderate mitral regurgitation.�Mild to moderate aortic stenosis 1.1 cm.�Moderate to severe tricuspid regurgitation. PA
pressure 45
PFT 12/17/12- FVC 2.05L or 81% of predicted, FEV1 1.55L or 82% of predicted, Ratio was 76%. TLC 3.9L or 85% of predicted, Diffusing capacity 20.9 or 109% of predicted
Reports and relevant images were personally reviewed.
Subjective Dataa
Subjective Data
Date of Service:
Date of Service: November 01, 2023
Subjective:
Patient is without complaints. She was restless through the night but otherwise feels well. She denies any shortness of breath, chest pain, chest tightness, nausea, abdominal pain
Objective Data
Data Reviewed
Vital Signs / I&O / Oxygen:
Vital Signs
Temp Pulse Resp BP Pulse Ox
98.6 F 62 17 132/62 98
11/01/23 06:00 11/01/23 06:30 11/01/23 06:30 11/01/23 06:00 11/01/23 06:30
Intake and Output
10/31/23 11/01/23 11/02/23
06:59 06:59 06:59
Intake Total 1310 / 1441 2473 / 2473
Output Total 1275 / 1575 1760 / 1760
Balance 35 / -134 713 / 713
SaO2 98
Nasal Cannula flow liters per 2
minute
Physical Exam
General: Comfortable
HEENT: Normocephalic and Anicteric
Cardiovascular: S1-S2, Regular Rhythm, Murmur (n) and Rub (n)
Respiratory: Wheeze (n), Crackles (n) and Rhonchi
GI: Soft, Non Distended and Non Tender
Neurology: Awake, Alert and No Motor Deficits
Skin: Cyanosis (n), Jaundice (n), Rash (n) and Other (Extremities warm, remains on Bartolo hugger)
Labs/Micro/Reports
Lab Data
11/01/23 05:20
11/01/23 05:20
Laboratory Results
10/31/23 10/31/23 10/31/23
07:59 13:15 19:15
PT 14.7 H Cancelled Cancelled
INR 1.17 Cancelled Cancelled
APTT 35.7 H Cancelled Cancelled
10/31/23 11/01/23 11/01/23
21:48 05:20 05:20
PT 16.0 H
INR 1.30
APTT 50.6 H > 200 H* Cancelled
[2023-11-01] MEDS: LOW STRENGTH ASPIRIN 81 MG PO (08:03)
[2023-11-01] MEDS: MIRALAX PO (08:05)
[2023-11-01] MEDS: COLACE PO (08:05)
[2023-11-01] MEDS: ELIQUIS 2.5 MG PO ×2 (09:58→19:42)
--- NOTE | 2023-11-01 10:05 | PTCARENOTE ---
Rec'd pt at 0700. Pt AAOx3, follows commands, DAMON. Monitor Afib 60-70's. 0830-Heparin gtts restarted per protocol at 900units/hr. ~0925 Heparin gtts dc'd as per orders and Eliquis restarted. Lungs CTA, pox 98% RA. +BS, abd soft/nt. Cervantes draining
yellow urine. Bartolo hugger in place to lower extremities. +DP/PT pulses by doppler, feet pink and warm. Left groin DARREL, dressing removed by this am.
--- NOTE | 2023-11-01 13:37 | W.PN.HOSP.TC ---
Today's Communication/Plan
-
Eliquis
PT/OT
2S
Dispo efforts
Assessment / Plan
Assessment / Plan
Assessment:
Acute right lower extremity limb ischemia
- CTA: Complete occlusion of the right popliteal artery, similar to prior. The right anterior and posterior tibial arteries are completely occluded throughout the lower leg, progressed from prior. The right peroneal artery is patent to level of the
ankle, below which is not well visualized, possibly occluded.
- s/p RLE lysis cath placement 10/29 and RLE lysis catheter removal, arteriogram, balloon angioplasty below knee popliteal, TP trunk, PT, AT, peroneal arteries. Penumbra to below knee pop on 10/30
- transitioned to Eliquis
- PT/OT
Hypothermia
- s/p Bartolo Hugger
Permanent atrial fibrillation
- continue Eliquis/BB
Previous history of peripheral vascular disease with acute ischemic leg and previous thrombectomy
- apparently forgot to take Eliquis leading to this admit
Coronary artery disease
- continue isosorbide and metoprolol
History of diastolic congestive heart failure with pulmonary hypertension--patient is not in exacerbation
- monitor I/Os, weights
Essential hypertension
- continue Norvasc, metoprolol as able
DVT ppx: Eliquis
Code: Full
Dispo: 2S Tele. Possible DC in 24 hours
Anticipated Discharge: Within 24 hours
Subjective/Interval History
-
Date of Service: November 01, 2023
denies any complaints no foot pain
Objective Data
-
Labs:
Laboratory Results
11/01/23 11/01/23 11/01/23
05:20 05:20 14:30
WBC 8.4
Hgb 9.1 L
Hct 26.8 L
Plt Count 292
PT 16.0 H
INR 1.30
APTT > 200 H* Cancelled Cancelled
Sodium 135
Potassium 4.1
Chloride 110 H
Carbon Dioxide 24
BUN 15
Creatinine 0.8
Glucose 95
Calcium 8.3 L
Vital Signs:
Vital Signs
Temp Pulse Resp BP Pulse Ox
99.7 F 65 21 136/59 99
11/01/23 12:13 11/01/23 09:00 11/01/23 09:00 11/01/23 09:00 11/01/23 09:00
I&O
10/31/23 11/01/23 11/02/23
06:59 06:59 06:59
Intake Total 1310 / 1441 2473 / 2473 249 / 249
Output Total 1275 / 1575 1760 / 1860 650 / 650
Balance 35 / -134 713 / 613 -401 / -401
Physical Exam
-
General: No Apparent Distress
HEENT: Normocephalic and Atraumatic
Respiratory: Negative Wheezes
Cardiac: Regular Rhythm and S1/S2
GI: Soft
Musculoskeletal: No Edema
Neuro: AO x 3
Psych: Calm
Data Reviewed
-
Total Time Spent with Patient (in minutes): 41
Labs: Labs Reviewed by me
--- NOTE | 2023-11-01 17:20 | PTCARENOTE ---
PT OOB to chair with physical therapy. ~1200-left groin site oozing scant amt, small pressure dressing applied. Family at bedside, updated. ~1245 Helen dc'd, pt ambulated to bathroom with assist of 1 and walker to void multiple times. Pt transferred
to [address] [place] [address] via wheelchair.
[2023-11-01] MEDS: COLACE 100 MG PO (19:42)
[2023-11-01] MEDS: RESTORIL 30 MG PO (21:32)
[2023-11-02 03:01] VITALS: BP 164/70
[2023-11-02 06:00] VITALS: BMI 20.9
[2023-11-02 06:27] LABS: Hematocrit 27.3 % (37.0-47.0); Mean Corpuscular Hgb 31.7 pg (27.0-31.0); Mean Corpuscular Volume 96.1 fL (81.0-99.0); Mean Platelet Volume 10.3 fL (7.4-10.4); Platelet Count 270 10^3/uL (130-400); Red Blood Cell Count 2.84 10^6/uL (4.20-5.40); Red Cell Dist. Width 17.2 % (11.5-14.5); White Blood Cell Count 5.5 10^3/uL (4.8-10.8)
[2023-11-02 06:56] LABS: Blood Urea Nitrogen 11 mg/dl (7-17); Calcium 8.2 mg/dl (8.4-10.2); Carbon Dioxide 27 mmol/L (22-30); Chloride 107 mmol/L (98-107); Estimated Creatinine Clearance 45 ml/min; Glucose 80 mg/dl (70-99); Potassium 3.3 mmol/L (3.5-5.1); Sodium 138 mmol/L (135-145); eGFR > 60.00
[2023-11-02 08:03] VITALS: BP 157/64
[2023-11-02] MEDS: MIRALAX 17 GRAMS PO (08:03)
[2023-11-02] MEDS: TOPROL XL 12.5 MG PO (08:03)
[2023-11-02] MEDS: KCL 40 MEQ PO (08:03)
[2023-11-02] MEDS: LOW STRENGTH ASPIRIN 81 MG PO (08:03)
[2023-11-02] MEDS: NORVASC 5 MG PO (08:04)
[2023-11-02] MEDS: COLACE 100 MG PO (08:04)
[2023-11-02] MEDS: ELIQUIS 2.5 MG PO (08:04)
--- NOTE | 2023-11-02 09:01 | W.PN.VS ---
Today's Communication / Plan
-
as above
Assessment/Plan
-
Ok for OOB, PT/OT
On Eliquis
Ok to discharge from vascular surgery standpoint
Subjective Data
-
Date of Service: November 02, 2023
Patient states she feels well. No pain in groin or feet
Objective Data
-
Vital Signs
Temp Pulse Resp BP Pulse Ox
98.3 F 63 20 157/64 97
11/02/23 08:03 11/02/23 08:04 11/02/23 08:03 11/02/23 08:04 11/02/23 08:03
Intake and Output
11/01/23 11/02/23 11/03/23
06:59 06:59 06:59
Intake Total 2473 / 2473 489 / 489
Output Total 1760 / 1860 650 / 650
Balance 713 / 613 -161 / -161
Intake:
Oral fluids 600 / 600 480 / 480
IV fluids (Total) 1373 / 1373
HEPARIN 01310 UNITS/250 ML 25, 10 / 10
000 units In 250 ml @ 500 UNITS
/HR 5 mls/hr ART SHEATH .Q24H
NADIA Rx#:[id number]
Normosol-R 1,000 ml @ 80 mls/hr 160 / 160
IV .[id number] NADIA Rx#:[id number]
Nss 1,000 ml @ 46 mls/hr INF 92 / 92
CATH .[id number] NADIA Rx#:[id number]
Nss 1,000 ml @ 80 mls/hr IV . 960 / 960
[id number] NADIA Rx#:[id number]
heparin 151 / 151
IV piggybacks 500 / 500
Output:
Urine, Cervantes 1760 / 1860 650 / 650
Other:
Number of approximated MODERATE 1
amounts of urine
Lab Results
11/02/23 05:16
11/02/23 05:16
Calcium 8.2 mg/dl (8.4-10.2) L 11/02/23 05:16
Magnesium 1.8 mg/dl (1.6-2.3) 10/31/23 01:09
Total Bilirubin 0.9 mg/dl (0.2-1.3) 10/31/23 01:09
AST 24 U/L (14-36) 10/31/23 01:09
ALT < 10 U/L (0-35) 10/31/23 01:09
Alkaline Phosphatase 106 U/L (38-126) 10/31/23 01:09
Total Protein 6.1 g/dl (6.3-8.2) L 10/31/23 01:09
Albumin 2.8 g/dl (3.5-5.0) L 10/31/23 01:09
Physical Exam
-
NAD
L groin access site c/d/i, no hematomas
+DP/PT signals bilaterally, feet warm
--- NOTE | 2023-11-02 09:12 | W.PN.HOSP.TC ---
Today's Communication/Plan
-
dc home VN
d/w CHRISTOFER Zayas
Assessment / Plan
Assessment / Plan
Assessment:
Acute right lower extremity limb ischemia
- CTA: Complete occlusion of the right popliteal artery, similar to prior. The right anterior and posterior tibial arteries are completely occluded throughout the lower leg, progressed from prior. The right peroneal artery is patent to level of the
ankle, below which is not well visualized, possibly occluded.
- s/p RLE lysis cath placement 10/29 and RLE lysis catheter removal, arteriogram, balloon angioplasty below knee popliteal, TP trunk, PT, AT, peroneal arteries. Penumbra to below knee pop on 10/30
- transitioned to Eliquis
- continue ASA
- PT/OT - VN
Hypothermia
- s/p Bartolo Hugger
Permanent atrial fibrillation
- continue Eliquis/BB
Previous history of peripheral vascular disease with acute ischemic leg and previous thrombectomy
- apparently forgot to take Eliquis leading to this admit
Coronary artery disease
- continue isosorbide and metoprolol
History of diastolic congestive heart failure with pulmonary hypertension--patient is not in exacerbation
- monitor I/Os, weights
Essential hypertension
- continue Norvasc, metoprolol as able
DVT ppx: Eliquis
Code: Full
Dispo: dc home with VN
Anticipated Discharge: Today
Subjective/Interval History
-
Date of Service: November 02, 2023
no foot/leg pain
has agreed to VN
Objective Data
-
Labs:
Laboratory Results
11/02/23
05:16
WBC 5.5
Hgb 9.0 L
Hct 27.3 L
Plt Count 270
Sodium 138
Potassium 3.3 L
Chloride 107
Carbon Dioxide 27
BUN 11
Creatinine 0.7
Glucose 80
Calcium 8.2 L
Vital Signs:
Vital Signs
Temp Pulse Resp BP Pulse Ox
98.3 F 63 20 157/64 97
11/02/23 08:03 11/02/23 08:04 11/02/23 08:03 11/02/23 08:04 11/02/23 08:03
I&O
11/01/23 11/02/23 11/03/23
06:59 06:59 06:59
Intake Total 2473 / 2473 489 / 489
Output Total 1760 / 1860 650 / 650
Balance 713 / 613 -161 / -161
Physical Exam
-
General: No Apparent Distress
HEENT: Normocephalic and Atraumatic
Respiratory: Negative Wheezes or Rales
Cardiac: Regular Rhythm and S1/S2
GI: Soft and Nontender
Genito-urinary: No Costovertebral Tender
Musculoskeletal: No Edema
Neuro: AO x 3
Hematologic / Lymphatic: No Lymphadenopathy
Psych: Calm
Data Reviewed
-
Total Time Spent with Patient (in minutes): 42
Labs: Labs Reviewed by me
--- NOTE | 2023-11-02 09:13 | CM ---
Addendum entered by Christiane Lees 11/02/23 11:23:
CM confirmed with [facility] that they could accept patient and will see her on friday. CM updated patient granddaughter.
Original Note:
Patient seen at bedside, IMM reviewed and signed. Patient indicated that she would like to have [facility] for follow up after review of PAC data. CM will send referral to [facility] via all scripts. Physician made aware. CM will continue to follow for
discharge planning needs.
Plan; home with [facility] referral pending acceptance
--- NOTE | 2023-11-02 09:18 | W.DS.TRANS ---
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
-
Discharge Instructions:
Discharge Diagnosis/Procedures occlusive thrombus RLE s/p lysis/thrombectomy/
angioplasty
Diet As tolerated,Low Cholesterol,2 Gram Sodium
Activity No strenuous activity
Bathing Restrictions OK to Shower
Others Tests Ultrasound: 12/04 @ 3pm
Other Services VN
Instructions:
Stand-Alone Forms: DC Instr - Vascular OR
Changes to Home Medications: Yes
Discharge Medications:
DC Medications w/original date entered in [facility]
metoprolol succinate 25 mg tablet,extended release 24 hr 12.5 mg (1/2 x 25 mg) PO DAILY 30 days #15 tabs 07/31/23
temazepam 15 mg capsule 30 mg (2 x 15 mg) PO HS 30 days #60 caps 07/31/23
acetaminophen 325 mg tablet 650 mg PO Q6HPRN PRN mild pain 10/30/23
amlodipine 5 mg tablet 5 mg PO DAILY Blood Pressure 10/30/23
isosorbide mononitrate 60 mg tablet,extended release 24 hr 60 mg PO DAILY PRN chest pain 10/30/23
oxycodone-acetaminophen 10 mg-325 mg tablet 1 tab PO DAILY Pain 10/30/23
apixaban 2.5 mg tablet (Eliquis) 2.5 mg PO BID #60 tabs 11/02/23
aspirin 81 mg chewable tablet (Children's Aspirin) 81 mg PO DAILY #100 tabs 11/02/23
Home Medication Changes
ASA added
Pending Results: No
Total time spent discharging patient (in min): 42
== END 2023-11-02 10:08 | disposition home health service (06) | DRG 271 ==
LOC: 2 SOUTH 17:49
PROVIDERS: Internal Medicine; Nurse Practitioner Acute Care; Physician Assistant; Surgery Vascular Surgery; ADMITTING PHYSICIAN Internal Medicine; ATTENDING PHYSICIAN Internal Medicine; CONSULT PHYSICIAN Internal Medicine Critical Care Medicine; CONSULT PHYSICIAN Surgery Vascular Surgery; EMERGENCY PHYSICIAN Emergency Medicine; FAMILY PHYSICIAN Family Medicine
PROC: B4201ZZ Computerized Tomography (CT Scan) of Abdominal Aorta using Low Osmolar Contrast (ICD-10-PCS; 2023-10-30)
PROC: B42F1ZZ Computerized Tomography (CT Scan) of Right Lower Extremity Arteries using Low Osmolar Contrast (ICD-10-PCS; 2023-10-30)
PROC: 04FY3ZZ Fragmentation of Lower Artery, Percutaneous Approach (ICD-10-PCS; 2023-10-30)
PROC: 047M3ZZ Dilation of Right Popliteal Artery, Percutaneous Approach (ICD-10-PCS; 2023-10-31)
PROC: 047R3ZZ Dilation of Right Posterior Tibial Artery, Percutaneous Approach (ICD-10-PCS; 2023-10-31)
PROC: 047T3ZZ Dilation of Right Peroneal Artery, Percutaneous Approach (ICD-10-PCS; 2023-10-31)
PROC: X2CS3T7 Extirpation of Matter from Right Lower Extremity Artery using Computer-aided Mechanical Aspiration, Percutaneous Approach, New Technology Group 7 (ICD-10-PCS; 2023-10-31)
PROC: 047P3ZZ Dilation of Right Anterior Tibial Artery, Percutaneous Approach (ICD-10-PCS; 2023-10-31)
DX: I70.221 Atherosclerosis of native arteries of extremities with rest pain, right leg (principal); I48.21 Permanent atrial fibrillation; I70.92 Chronic total occlusion of artery of the extremities; I50.32 Chronic diastolic (congestive) heart failure; I25.10 Atherosclerotic heart disease of native coronary artery without angina pectoris; I27.20 Pulmonary hypertension, unspecified; I11.0 Hypertensive heart disease with heart failure; Z79.01 Long term (current) use of anticoagulants
CPT/HCPCS: 37186; 37213; 37224; 37228; 37232; 71045; 75635; 80048; 80053; 83735; 85014; 85018; 85025; 85027; 85049; 85384; 85610; 85730; 93005; 93971; 96374; 96375; 97162; 97166; 99291; C1725; C1757; C1760; C1769; C1887; C1894; J2997; Q9967

== ENCOUNTER 2023-11-28 11:08 | Emergency (ER) | payer MEDICARE, OTHER, SELFPAY ==
[2023-11-28 11:12] VITALS: BP 125/77
--- NOTE | 2023-11-28 12:07 | ED.GENMED ---
History of Present Illness
General
Chief Complaint: Fall
Time Seen by Provider: 11/28/23 11:24
Travel History
Have you had any contact with someone who has COVID-19?: No
Do you have any symptoms of coronavirus? Fever > 100 degrees, chills, cough, shortness of breath, sore throat, loss of taste or smell, muscle aches, or headache?: No
History of Present Illness
History of Present Illness:
88-year-old female with history of A-fib on Eliquis presents to the emergency department for evaluation of left shoulder pain after a minor fall yesterday. She denies any head strike. She does have some memory loss issues, arrives with a close
family friend who states she is at her baseline mentation. She resides with her 2 grandsons that help her routinely. She is unable to move the left arm. She notes that she requires walker assistance for ambulation
Past History
Past History
ED Past Medical History: Arrthythmia and Other (AFIB); Negative NIDDM or Seizures
Social History
Tobacco: Non-smoker
Alcohol: None
Drug: None
Living: with family
Employment: Retired
Family History
Family History: Other (n/c)
Review of Systems
Review of Systems
Allergies reviewed?: Yes
All Other Systems: ROS reviewed and negative except as documented in HPI and ROS
Phy Exam
Physical Exam
Physical Exam:
GEN: Well appearing, NAD, WDWN
HEENT: Oral mucosa moist, no scleral icterus
Cardiac: Regular rate
Lung: No respiratory distress, no tachypnea
MSK: Diffuse swelling and ecchymosis to left thumb left elbow and wrist range of motion is normal
Skin: Good color, no pallor or jaundice, no rashes
Neuro: Alert and oriented, disoriented to month and year but this is reportedly baseline
Psych: Calm, cooperative
Course
Orders/Labs/Results
Orders:
Orders
11/28/23 11:19
Humerus, Left 2 Views [CR Humerus - Left Min 2 Views*] Urgent
Comment:
Reason For Exam: fall, left humerus pain
11/28/23 12:07
Tramadol HCl [Ultram] 25 mg PO NOW STA
Vital Signs
Initial and Last Documented VS:
Initial Vital Signs
Temp Pulse Resp BP Pulse Ox
98 F 97 18 125/77 98
11/28/23 11:12 11/28/23 11:12 11/28/23 11:12 11/28/23 11:12 11/28/23 11:12
Last Documented Vital Signs
Temp Pulse Resp BP Pulse Ox
98 F 97 18 125/77 98
11/28/23 11:12 11/28/23 11:12 11/28/23 11:12 11/28/23 11:12 11/28/23 11:12
MDM/Problems Addressed
MDM/Problems Addressed:
Patient with no focal signs of head trauma. She is at her baseline mental status and greater than 24 hours since the injury. No indication for CT of the head. Placed in left shoulder immobilizer, recommend outpatient orthopedic follow-up, she has
a planned follow-up with [facility] orth[facility]ics for back pain on Friday. I did offer the patient OT evaluations as well as case management consultation due to her typical for walker assistance however she declines and states that her family says
that she needs, her family friend present states that she has adequate resources at home
*Critical Care Note
Total Time (30-74mins, 75-104mins- exclusive of procedures): Not Applicable
ED Attending Note
-
Portions of this chart may have been created with voice recognition software.� Occasional wrong word or��sound alike� substitutions may have occurred due to the inherent limitations of voice recognition software.
Discharge Plan
Departure
Patient Disposition: Home (Routine Discharge)
Date of Disposition: 11/28/23
Time of Disposition: 12:09
Patient with high blood pressure during this ER visit?: No
Discharge Problem:
Closed left humeral fracture
Instructions: Upper Arm Fracture ED
Prescriptions:
New
tramadol 50 mg tablet
25 - 50 mg PO Q8H PRN (Reason: Pain) Qty: 10 0RF
No Action
amlodipine 5 mg Tablet
5 mg PO DAILY
isosorbide mononitrate 60 mg Tablet Extended Release 24 Hr
60 mg PO DAILY PRN (Reason: chest pain)
Patient Comments:
10/30/2023, prescribed for pt. to take daily but pt. takes as needed for chest pain.
oxycodone-acetaminophen 10-325 mg Tablet
1 tab PO DAILY
Patient Comments:
10/30/2023, per pt., she takes one tablet daily.
acetaminophen 325 mg tablet
650 mg PO Q6HPRN PRN (Reason: mild pain)
aspirin [Children's Aspirin] 81 mg Tablet,Chewable
81 mg PO DAILY Qty: 100 0RF
Eliquis 2.5 mg Tablet
2.5 mg PO BID Qty: 60 0RF
temazepam 15 mg Capsule
30 mg PO HS 30 Days Qty: 60 0RF
metoprolol succinate 25 mg Tablet Extended Release 24 Hr
12.5 mg PO DAILY 30 Days Qty: 15 0RF
Interventions
Interventions:
*Risk Screen - Suicide Last Done: 11/28/23 11:12
*General Assessment Last Done: 11/28/23 11:12
*Neglect/Abuse Screening Last Done: 11/28/23 11:12
*Nursing Disposition Last Done: 11/28/23 12:47
ED-Musculoskeletal Assessment Last Done: 11/28/23 11:31
ED- Neurological Assessment Last Done: 11/28/23 11:37
ED-Skin Assessment Last Done: 11/28/23 11:37
Discharge Date and Time
Discharge Date/Time: 11/28/23 12:47
Print Language: [place]
[2023-11-28] MEDS: ULTRAM 25 MG PO (12:12)
== END 2023-11-28 12:47 | disposition home or self-care (01) ==
LOC: EMR 11:08
PROVIDERS: EMERGENCY PHYSICIAN Emergency Medicine; FAMILY PHYSICIAN Family Medicine
DX: S42.302A Unspecified fracture of shaft of humerus, left arm, initial encounter for closed fracture (principal); S60.012A Contusion of left thumb without damage to nail, initial encounter; S50.02XA Contusion of left elbow, initial encounter; W19.XXXA Unspecified fall, initial encounter; R41.3 Other amnesia; I48.91 Unspecified atrial fibrillation; Z79.01 Long term (current) use of anticoagulants
CPT/HCPCS: 99283; 73060

== ENCOUNTER → 2024-04-02 14:04 | Outpatient (REF) | payer MEDICARE, OTHER, SELFPAY | LOC: RAD 14:04 | PROVIDERS: ATTENDING PHYSICIAN Surgery Vascular Surgery | DX: M79.671 Pain in right foot (principal); I99.8 Other disorder of circulatory system | CPT/HCPCS: 93922; 93925 ==

== ENCOUNTER 2024-07-22 23:54 | Inpatient (IN) | payer MEDICARE, OTHER, SELFPAY ==
[2024-07-22 20:32] VITALS: BMI 17.8
--- NOTE | 2024-07-22 20:38 | ED.GENMED ---
History of Present Illness
General
Chief Complaint: Change in Mental Status
Source: ambulance crew
Exam Limitations: clinical condition
Time Seen by Provider: 07/22/24 20:33
History of Present Illness
History of Present Illness:
See MDM
Past History
Past History
ED Past Medical History: Arrthythmia and Other (AFIB); Negative NIDDM or Seizures
Social History
Tobacco: Non-smoker
Alcohol: None
Drug: None
Living: with family
Employment: Retired
Family History
Family History: Other (n/c)
Phy Exam
Physical Exam
Physical Exam:
See MDM
Course
Orders/Labs/Results
Orders:
Orders
07/22/24 20:38
Electrocardiogram (*1) Urgent
Reason for Study: Fatigue / Weakness
EKG- Treatment ONCE
07/22/24 20:40
Basic Metabolic Panel Urgent
COVID-19 Antigen Urgent
Source: Nasal Swab
Complete Blood Count/With Diff Urgent
Urinalysis Reflex To Culture Urgent
Date Specimen was Collected: 07/22/24
Time Specimen was Collected: 20:35
Urine Microscopic Reflex Cult Urgent
Influenza A+B Rapid Molecular Urgent
MIKALA Source: Nasal Swab
Specimen Description:
Date Specimen was Collected: 07/22/24
Time Specimen was Collected: 20:35
Urine Culture Urgent
MIKALA Source: U
Specimen Description:
Date Specimen was Collected: 07/22/24
Time Specimen was Collected: 20:35
07/22/24 20:42
CT Head W/o Iv Contrast Urgent
Comment:
Reason For Exam: altered
Abnormal Lab Results
07/22/24
20:40
WBC 14.7 H 10^3/uL
(4.8-10.8)
RBC 3.62 L 10^6/uL
(4.20-5.40)
Hgb 11.3 L g/dL
(12.0-16.0)
Hct 34.6 L %
(37.0-47.0)
MCH 31.2 H pg
(27.0-31.0)
MCHC 32.7 L g/dL
(33.0-37.0)
RDW 14.8 H %
(11.5-14.5)
Abs Immat Gran (auto) 0.1 H 10^3/uL
(0-0.05)
Absolute Neuts (auto) 10.8 H 10^3/uL
(1.4-6.5)
Absolute Monos (auto) 1.1 H 10^3/uL
(0.1-0.6)
Lymphocytes % 18.6 L %
(20.5-51.1)
Sodium 131 L mmol/L
(135-145)
Chloride 96 L mmol/L
(98-107)
BUN 26 H mg/dl
(7-17)
Creatinine 1.1 H mg/dL
(0.6-1.0)
Calcium 8.2 L mg/dl
(8.4-10.2)
Urine Ketones Trace A
(Negative)
Urine Nitrite (Reflex) Positive A
(Negative)
Urine Bilirubin 1+ A
(Negative)
Leukocyte Esterase Rfl Trace A
(Negative)
Urine Bacteria (Reflex) Many A
(Negative)
07/22/24 20:40
07/22/24 20:40
Vital Signs
Initial and Last Documented VS:
Initial Vital Signs
Pulse Resp Pulse Ox
88 25 96
07/22/24 20:46 07/22/24 20:46 07/22/24 20:46
Last Documented Vital Signs
Pulse Resp Pulse Ox
88 25 96
07/22/24 20:46 07/22/24 20:46 07/22/24 20:46
MDM/Problems Addressed
Differential Diagnosis Includes:
HPI and MDM Narrative:
88-year-old female presenting by EMS for evaluation of altered mental status. She apparently lives at home. On arrival, patient's pants were covered in old urine and fecal matter. Patient is altered and confused.
Patient is moving all 4 extremities. Urinalysis was obtained at bedside using straight catheterization and foul-smelling and cloudy urine was obtained. .
Physical exam
General: Weak, frail, altered and confused
HEENT: protecting airway. Dry mucous membranes
Neck: appears supple
CV: No evidence of cyanosis
Resp: No accessory muscle use. Lungs clear
Abd: Non-distended. No tenderness with palpation
Extremities: No deformities
Neuro: alert
Psych: Flat affect
Skin: Intact
Problems Addressed including Acute and Chronic Conditions affecting care:
1. Altered mental status
Acuity: acute
Prognosis: unstable
Details: Likely in setting of UTI. Urinalysis pending. Will obtain CT head and basic blood work looking for evidence of metabolic abnormalities
Updates
On reassessment after oral fluids, patient has perked up. Patient found to be influenza negative but also found to have a UTI. Will start Rocephin
Differential Diagnosis (but not limited to): UTI, intracranial hemorrhage, stroke
Testing considered: CT abdomen/pelvis but there is no tenderness with palpation
Drug therapy (if applicable): OTC meds, please see d/c instruction regarding Rx drugs
Amount and/or Complexity of Data Reviewed
Clinical info obtained from: EMS
External data reviewed: N/A
Labs I independently reviewed (but not limited to): Urinalysis, mild leukocytosis
Radiology: N/A
Pulse Ox: not hypoxic
EKG independently reviewed: A-fib, left axis, no STEMI
Paint Specialist: N/A
Critical Care: N/A
Risk of Complication:
Social Determinants of health: Good social support
Discussed with other providers: Hospitalist
Escalation of Care includes Admit/Obs: Given her weakness in addition to influenza and UTI, will admit
Occasional wrong word or 'sound a like' substitutions may have occurred due to the inherent limitations of voice recognition software. Read the chart carefully and recognize, using context, where substitutions have occurred.
*Critical Care Note
Total Time (30-74mins, 75-104mins- exclusive of procedures): Not Applicable
ED Attending Note
-
Portions of this chart may have been created with voice recognition software.� Occasional wrong word or��sound alike� substitutions may have occurred due to the inherent limitations of voice recognition software.
Discharge Plan
Departure
Patient Disposition: Admit
Date of Disposition: 07/22/24
Time of Disposition: 21:18
Admit to: Med/Surg
Presentation/result/management discussed w/ accepting MD/DO: Hospitalist
Discharge Problem:
Influenza, Acute UTI
Prescriptions:
No Action
amlodipine 5 mg Tablet
5 mg PO DAILY
isosorbide mononitrate 60 mg Tablet Extended Release 24 Hr
60 mg PO DAILY PRN (Reason: chest pain)
Patient Comments:
10/30/2023, prescribed for pt. to take daily but pt. takes as needed for chest pain.
oxycodone-acetaminophen 10-325 mg Tablet
1 tab PO DAILY
Patient Comments:
10/30/2023, per pt., she takes one tablet daily.
acetaminophen 325 mg tablet
650 mg PO Q6HPRN PRN (Reason: mild pain)
aspirin [Children's Aspirin] 81 mg Tablet,Chewable
81 mg PO DAILY Qty: 100 0RF
Eliquis 2.5 mg Tablet
2.5 mg PO BID Qty: 60 0RF
tramadol 50 mg tablet
25 - 50 mg PO Q8H PRN (Reason: Pain) Qty: 10 0RF
temazepam 15 mg Capsule
30 mg PO HS 30 Days Qty: 60 0RF
metoprolol succinate 25 mg Tablet Extended Release 24 Hr
12.5 mg PO DAILY 30 Days Qty: 15 0RF
Interventions
Interventions:
*Risk Screen - Suicide Last Done: 07/22/24 20:35
*General Assessment Last Done: 07/22/24 20:35
*Neglect/Abuse Screening Last Done: 07/22/24 20:35
ED- Fall Risk Assessment Last Done: 07/22/24 20:46
*ED COVID-19 Vaccine History Last Done: 07/22/24 20:35
ED- Pulmonary Assessment Last Done: 07/22/24 20:47
ED- Neurological Assessment Last Done: 07/22/24 20:46
ED- Cardiac Assessment Last Done: 07/22/24 20:46
Discharge Date and Time
Print Language: WELSH
[2024-07-22 20:49] LABS: % Basophils 0.3 % (0-2); % Eosinophils 0.1 % (0-6); % Immature Granulocytes 0.5 % (0-0.5); % Lymphocytes 18.6 % (20.5-51.1); % Monocytes 7.3 % (1.7-9.3); % Neutrophils 73.2 % (42.2-75.2); Absolute Immature Granulocytes 0.1 10^3/uL (0-0.05); Absolute Lymphocytes 2.7 10^3/uL (1.2-3.4); Absolute Monocytes 1.1 10^3/uL (0.1-0.6); Absolute Neutrophils 10.8 10^3/uL (1.4-6.5); Hematocrit 34.6 % (37.0-47.0); Hemoglobin 11.3 g/dL (12.0-16.0); Mean Corp Hgb Conc. 32.7 g/dL (33.0-37.0); Mean Corpuscular Hgb 31.2 pg (27.0-31.0); Mean Corpuscular Volume 95.6 fL (81.0-99.0); Mean Platelet Volume 9.5 fL (7.4-10.4); Nucleated Red Blood Cells % 0 %; Platelet Count 379 10^3/uL (130-400); Red Blood Cell Count 3.62 10^6/uL (4.20-5.40); Red Cell Dist. Width 14.8 % (11.5-14.5); White Blood Cell Count 14.7 10^3/uL (4.8-10.8)
[2024-07-22 20:50] LABS: Urine Albumin Trace (Neg - Trace); Urine Bilirubin 1+ (Negative); Urine Character Clear (Clear); Urine Color Yellow; Urine Glucose Negative (Negative); Urine Ketone Trace (Negative); Urine Leukocyte Trace (Negative); Urine Nitrite Positive (Negative); Urine Occult Blood Negative (Negative); Urine Urobilinogen Negative (Neg - 1+)
[2024-07-22 20:59] LABS: Urine Bacteria Many (Negative); Urine Red Blood Cell 0-2 /HPF (0-2)
[2024-07-22 21:00] VITALS: BP 97/57
[2024-07-22 21:10] LABS: Blood Urea Nitrogen 26 mg/dl (7-17); COVID-19 Antigen Negative (Negative); Calcium 8.2 mg/dl (8.4-10.2); Carbon Dioxide 24 mmol/L (22-30); Chloride 96 mmol/L (98-107); Estimated Creatinine Clearance 25 ml/min; Glucose 75 mg/dl (70-99); Sodium 131 mmol/L (135-145); eGFR 48.63
[2024-07-22] MEDS: ROCEPHIN 1000 MG IV (21:38)
[2024-07-22] MEDS: NSS 500 IV (21:46)
--- NOTE | 2024-07-22 22:51 | HPS.HSE ---
Family Physician
-
Family Physician: NOT KNOW UNKNOWN - PT DOES
Chief Complaint
-
Confusion and Cough
History of Present Illness
Patient is an 88 y/o female past medical history of ASCVD, A-Fib, Diastolic Heart Failure and Pulmonary Hypertension who presents with cough and confusion. At this point in time patient is unable to provide any history. Review of ED records
indicate patient has had a cough for the past two weeks. Upon arrival to the ED patient was noted be covered in old urine and stool. Straight cath revealed foul smelling urine, and patient also tested positive for Influenza.
Medical History
Past Medical History
Past Medical History: Reports Other
Additional Past Medical History:
Peripheral Arterial Disease
Coronary Artery Disease
Permanent Atrial Fibrillation
Essential Hypertension
Diastolic Heart Failure
Pulmonary Hypertension
Obesity
Past Surgical History: Reports Other
Additional Past Surgical History:
Right thrombectomy with right popliteal/anterior tibial/TP trunk/peritoneal thrombectomy done July 2022
Gastric [id number]
Left hip hemiarthroplasty
Left distal radius fracture with closed reduction
Social History
Tobacco: Non-smoker
Alcohol: None
Drug: None
Family History
Family History: Not pertinent
Allergies / Home Medications
Allergies reflects when Allergies were last updated in [employer].
Home Medications with original date entered in [employer]
Allergy/Medication List:
Allergies
Allergy/AdvReac Type Severity Reaction Status Date / Time
No Known Allergies Allergy Verified 10/30/23 13:47
Home Medications
metoprolol succinate 25 mg tablet,extended release 24 hr 12.5 mg (1/2 x 25 mg) PO DAILY 30 days #15 tabs 07/31/23
temazepam 15 mg capsule 30 mg (2 x 15 mg) PO HS 30 days #60 caps 07/31/23
acetaminophen 325 mg tablet 650 mg PO Q6HPRN PRN mild pain 10/30/23
amlodipine 5 mg tablet 5 mg PO DAILY Blood Pressure 10/30/23
isosorbide mononitrate 60 mg tablet,extended release 24 hr 60 mg PO Q48H 10/30/23
oxycodone-acetaminophen 10 mg-325 mg tablet 1 tab PO DAILYPRN PRN severe pain 10/30/23
apixaban 2.5 mg tablet (Eliquis) 2.5 mg PO BID #60 tabs 11/02/23
aspirin 81 mg chewable tablet (Children's Aspirin) 81 mg PO DAILY #100 tabs 11/02/23
guaifenesin 1,200 mg tablet, extended release 12 hr (Mucinex) 1,200 mg PO BIDPRN PRN flu symptoms 07/22/24
guaifenesin 100 mg/5 mL oral liquid 200 mg PO Q4HPRN PRN cough 07/22/24
Review of Systems
-
Unable to obtain full review of systems at this time due to: Other (Confusion)
Physical Exam
Vital Signs
Vital Signs
Temp Pulse Resp BP Pulse Ox
97.8 F 76 19 97/57 98
07/22/24 21:43 07/22/24 21:45 07/22/24 21:45 07/22/24 21:00 07/22/24 21:45
Physical Exam
General: Comfortable and Conversant
HEENT: Other (Mucous membranes are slightly dry)
Respiratory: Rhonchi (Anteriorly) and Non Labored Respirations
Cardiac: S1/S2 and Regular Rhythm
GI: Soft and Non Tender
Rectal: Deferred by Provider
Genito-urinary: Other (Cloudy Urine)
Musculoskeletal: No Clubbing, No Cyanosis and No Edema
Neuro: Awake, Alert and Other (Moving all four extremities, Follow some commands)
Psych: Confused
Laboratory Results
-
07/22/24 20:40
07/22/24 20:40
Laboratory Results
Total Bilirubin Cancelled 07/22/24 20:40
AST Cancelled 07/22/24 20:40
ALT Cancelled 07/22/24 20:40
Alkaline Phosphatase Cancelled 07/22/24 20:40
Data Reviewed
-
Lab Data: Labs Reviewed by me
Impression/Plan
-
Acute Bronchitis secondary to Influenza Type A
-Unclear exact onset of symptoms. Patient is afebrile therefore do not think patient will benefit from Tamiflu at this time
-Check CXR to evaluate for possible underlying pneumonia
-Continue empiric doxycycline and ceftriaxone pending chest x-ray result
-Continue DuoNeb QID and PRN
Acute Kidney Injury / Mild Hyponatremia
-Continue IVFs
-Recheck labs in AM
Peripheral Arterial Disease s/p Right Lower Extremity Thrombectomy
-Continue Aspirin and Eliquis
Coronary Artery Disease
-Continue aspirin, and isosorbide mononitrate
Permanent Atrial Fibrillation
-Continue Eliquis
-Continue metoprolol if BP allows
Essential Hypertension
-BP low upon arrival - Hold amlodipine
Hx Obesity s/p Gastric Bypass
DVT proph: Eliquis
Code Status: Full Code
--- NOTE | 2024-07-23 00:23 | W.PN.UPDATE ---
Update Note
Progress Note Update
Patient seen in conjunction with RAIL TRACTOR OPERATOR. I concur with history and physical. I agree with the assessment and plan as stated otherwise.
Briefly, this is an 88-year-old female with past medical history of permanent atrial fibrillation on anticoagulation with apixaban, CAD, valvular heart disease, hypertension presents to the emergency department with altered mental status.
Patient unable to provide much history. Per family and patient's had a cough for over a week. Unable to tell if he has been febrile at home or not. Found to be disheveled and confused on arrival in the emergency department. She was covered in
old urine and stool. Straight cath revealed foul-smelling urine. Patient immediately tested positive for influenza. COVID test was negative.
Rest of her vitals in the ED showed a blood pressure of 97/57 with a pulse of 94 and she was satting 94% on room air. ECG shows atrial fibrillation at rate of 86 without any acute ischemic changes. Troponin was negative. White count showed
leukocytosis to 14, hemoglobin and platelet counts were normal. Sodium was 131 and creatinine was 1.1. BUN was 20. With BUN of 50 and creatinine essentially doubled
The chest x-ray appears to shows a right sided infiltrate. UA was equivocal with trace leukocyte esterase and very few WBCs (3-5). There was bacteria as well as positive nitrites. Right lobe likely reflects contamination.
A&P
Influenza -unknown duration of disease but family appears to state patient has been having symptoms for over 1 week. She is not hypoxic. X-ray does shows a possible right-sided consolidation. Suspect post viral pneumonia.
- admit to med/surg
- no indication for tamiful
- check procalcitonin
- continue ceftriaxone for post-viral pneumonia for now pending procal
- supportive care
UTi - questionable
- urine cultures pending
- monitor for now on ceftriaxone
Hyponatremia - Na 131 with ANITA. BUN/Cr elevated. suspect hypovolemic
- gentle hydration overnight
ANITA - suspect hyponatremia
- hydration overnigh for now being mindflul of h/o afib and valvular heart disease. No evidence of overload at this time
AFIB
- continue apixaban 2.5 bid
- continue metoprolol
holding norvasc for relative low bp
PT eval
DVT PPX - on apixaban
Code status - full code
[2024-07-23] MEDS: NSS 1000 IV (01:30)
[2024-07-23 01:31] VITALS: BP 119/73; BMI 17.6
[2024-07-23 01:45] VITALS: BMI 17.6
[2024-07-23 06:00] VITALS: BMI 17.6
[2024-07-23 07:10] VITALS: BP 120/82
--- NOTE | 2024-07-23 07:33 | W.PN.HOSP.TC ---
Addendum entered and electronically signed by Sobeida Clark MD 07/23/24 16:00:
I saw and evaluated the patient independently. I reviewed the resident�s note and agree with findings and plan as documented by Dr. Gallegos.
GENERAL: elderly frail female in no apparent distress
HEENT: NC/AT
HEART: irreg irreg, 3/6 KESHAV
LUNGS : clear to auscultation bilaterally
ABDOM: soft, nontender, nondistended, + bowel sounds
EXT: no cyanosis, clubbing, or edema
NEUROLOGIC: unable to assess
Influenza positive with secondary Post viral pneumonia--out of window for Tamiflu treatment--neg procalcitonin--currently on rocephin/doxy
UTI--presumed with positive UA: Many bacteria,Positive positive nitrate, trace leukocyte esterase--culture pending
ANITA --creat 1.1 on admission--now back to baseline of 0.8
Permanent atrial fibrillation- continue apixaban- continue metoprolol
Peripheral Arterial Disease s/p Right Lower Extremity Thrombectomy 2022-Continue Aspirin and Eliquis
Essential hypertension� Hold amlodipine due to hypotensive on adm--restart when able
DVT PPX - on apixaban
Code status - full code
Original Note:
Today's Communication/Plan
-
Continue antibiotics
Urine culture pending
Assessment / Plan
Assessment / Plan
Impression: This is an 88-year-old female with past medical history of permanent atrial fibrillation on anticoagulation with apixaban, CAD, valvular heart disease, hypertension presents to the emergency department with altered mental status.
Assessment/Plan:
#Influenza/Post viral pneumonia
-CXR: Right lower lobe pneumonia, mild cardiomegaly
- procalcitonin negative
- continue ceftriaxone and doxycycline
-Continue supportive care
-PT/OT eval recommendations to skilled rehab
#UTI
-U/A: Many bacteria,Positive positive nitrate, trace leukocyte esterase
- urine cultures pending
- monitor for now on ceftriaxone
#ANITA
- Does not appear volume overloaded on exam
� Continue IV fluids
- Creatinine now 0.8
#Permanent atrial fibrillation
- continue apixaban
- continue metoprolol
#Peripheral Arterial Disease s/p Right Lower Extremity Thrombectomy 2022
-Continue Aspirin and Eliquis
#Essential hypertension
� Hold amlodipine due to hypotensive on adm
DVT PPX - on apixaban
Code status - full code
Anticipated Discharge: 24 - 48 hours
Subjective/Interval History
-
Date of Service: July 23, 2024
Patient does not seem very oriented to time or place.
Objective Data
-
Labs:
Laboratory Results
07/22/24 07/23/24
20:40 07:06
WBC 14.7 H Pending
Hgb 11.3 L Pending
Hct 34.6 L Pending
Plt Count 379 Pending
Sodium 131 L Pending
Potassium Pending
Chloride 96 L Pending
Carbon Dioxide 24 Pending
BUN 26 H Pending
Creatinine 1.1 H Pending
Glucose 75 Pending
Calcium 8.2 L Pending
Total Bilirubin Cancelled
AST Cancelled
ALT Cancelled
Alkaline Phosphatase Cancelled
Vital Signs:
Vital Signs
Temp Pulse Resp BP Pulse Ox
97.6 F 95 14 119/73 97
07/23/24 01:31 07/23/24 01:31 07/23/24 01:31 07/23/24 01:31 07/23/24 01:31
I&O
07/22/24 07/23/24 07/24/24
06:59 06:59 06:59
Intake Total 370 / 370
Balance 370 / 370
Review of Systems
-
Unable to obtain full review of systems at this time due to: Other (Not oriented)
Physical Exam
-
General: No Apparent Distress and Appears Chronically Ill
HEENT: Normocephalic
Respiratory: Clear to Auscultation
Cardiac: Regular Rhythm, S1/S2 and Murmur
GI: Soft, Nontender and Nondistended
Musculoskeletal: No Edema
Skin: Warm and Dry
Neuro: Awake and Alert; Negative Oriented
[2024-07-23 07:48] LABS: Hematocrit 34.9 % (37.0-47.0); Hemoglobin 11.5 g/dL (12.0-16.0); Mean Corpuscular Hgb 31.3 pg (27.0-31.0); Mean Corpuscular Volume 95.1 fL (81.0-99.0); Mean Platelet Volume 10.2 fL (7.4-10.4); Platelet Count 407 10^3/uL (130-400); Red Blood Cell Count 3.67 10^6/uL (4.20-5.40); Red Cell Dist. Width 14.8 % (11.5-14.5); White Blood Cell Count 14.1 10^3/uL (4.8-10.8)
[2024-07-23 07:55] LABS: Blood Urea Nitrogen 22 mg/dl (7-17); Calcium 8.2 mg/dl (8.4-10.2); Carbon Dioxide 20 mmol/L (22-30); Chloride 96 mmol/L (98-107); Estimated Creatinine Clearance 34 ml/min; Glucose 95 mg/dl (70-99); Potassium 4.1 mmol/L (3.5-5.1); Sodium 132 mmol/L (135-145); eGFR > 60.00
[2024-07-23] MEDS: DUONEB 3 ML INH ×2 (07:56→11:27)
[2024-07-23] MEDS: IMDUR (EXTENDED RELEASE) 60 MG PO (08:33)
[2024-07-23] MEDS: VIBRAMYCIN 100 MG PO ×2 (08:33→21:27)
[2024-07-23] MEDS: LOW STRENGTH ASPIRIN 81 MG PO (08:33)
[2024-07-23] MEDS: ELIQUIS 2.5 MG PO ×2 (08:34→21:27)
[2024-07-23] MEDS: TOPROL XL 12.5 MG PO (08:34)
[2024-07-23 10:38] VITALS: BP 110/73; PULSE 95; O2SAT 98
[2024-07-23 10:40] VITALS: BP 110/73; PULSE 95; O2SAT 98
--- NOTE | 2024-07-23 13:56 | WOUNDNOTE ---
[facility] RN note: Patient admitted with influenza
See H&P for complete history.
PMH: Per Physician note :Peripheral Arterial Disease, Coronary Artery Disease ,Permanent Atrial Fibrillation,Essential Hypertension
Diastolic Heart Failure, Pulmonary Hypertension
Wound Location and type/assessment: Patient admitted with sacral and right heel DTI. Right heel is closed, sacrum with open area distal to ecchymotic area. Per daughter patient lays in bed most of the time with no air surface. Patient's BMI is 17
and appears to needs assistance to eat at this time.
Pressure redistribution devices in place: Static air overlay added during assessment, waffle boot applied. Turning scheduled added to care plan.
Plan: Spoke to daughter about wounds and possibility of wounds worsening. Local wound care provided as ordered. Confirmed order for dietary consult with hospitalist. Patient positioned on right semi-side lying position with heels off-loaded on
pillows. Will confirm orders with hospitalist and update nurse.
Updated care plan and will follow as needed.
Note to case management of equipment requested for discharge: Air surface for SNF or home
Recommend follow up at wound care center upon discharge.
[2024-07-23 15:10] VITALS: BP 120/76
[2024-07-23 15:14] VITALS: BMI 17.6
[2024-07-23] MEDS: DUONEB INH ×2 (15:18→19:35)
--- NOTE | 2024-07-23 15:20 | WOUNDNOTE ---
RIGHT HEEL DTI
--- NOTE | 2024-07-23 16:39 | PN.CDI ---
CDI
- -
CDI:
Physician Documentation Request
Admit Date: 07/22/24 23:54
Dear Doctor Keyla,
Please review the following and provide your response in the progress notes.
Clinical Indicators:
Pt admitted with altered mental stasis, Influenza pneumonia, UTI and ANITA
ED: '88-year-old female presenting by EMS for evaluation of altered mental status. She apparently lives at home. On arrival, patient's pants were covered in old urine and fecal matter. Patient is altered and confused....' Altered mental
status-Likely in setting of UTI.'
Based on the above, could you clarify in the Progress Notes and Discharge Summary which, if any of the following, is the most likely etiology of the confusion/altered mental status.
Encephalopathy - indicate type, such as metabolic, toxic, hyponatremia etc.
Confusion Only
Other
Use of terms such as suspected, likely, concern for, or probable (associated with a specific diagnosis that is being evaluated, monitored, or treated as if it exists) are acceptable and can be coded in the inpatient setting, when documented at the
time of discharge.
Thank you,
Dina Lobo RN, BSN
CDI Specialist
Available via [employer]
Please use your independent medical judgment in providing your response.
--- NOTE | 2024-07-23 16:54 | PN.CDI ---
CDI
- -
CDI:
Physician Documentation Request
Admit Date: 07/22/24 23:54
Dear Doctor Keyla,
Please review the following and provide your response in the progress notes.
Clinical Indicators:
Pt admitted with altered mental stasis, Influenza pneumonia, UTI and ANITA
Selected Entries
07/22/24
23:34 07/23/24
01:31 07/23/24
07:10
Pulse 94 95 108
Laboratory Tests
07/22/24 07/23/24
20:40 07:06
WBC 14.7 H 14.1 H
Please clarify which of the following most accurately describes the status of the patient's infection:
Sepsis
- Systemic manifestations of infection, with 2 or more SIRS criteria which include:
- Fever >100.4 degrees F or hypothermia < 96.8 degrees F
- Leukocytosis - WBC > 12,000 or leukopenia - WBC < 4,000 or > 10% bands
- Tachycardia > 90 beats per minute
- Tachypnea - RR > 20 breaths per minute or PaCO2 , 32mmHg
UTI / Influenza PNA only
Other
Use of terms such as suspected, likely, concern for, or probable (associated with a specific diagnosis that is being evaluated, monitored, or treated as if it exists) are acceptable and can be coded in the inpatient setting, when documented at the
time of discharge.
Thank you,
Dina Lobo RN, BSN
CDI Specialist
Available via [employer]
Please use your independent medical judgment in providing your response.
--- NOTE | 2024-07-23 17:05 | PN.CDI ---
CDI
- -
CDI:
Physician Documentation Request
Admit Date: 07/22/24 23:54
Dear Doctor Keyla,
Please review the following and provide your response in the progress notes.
Clinical Indicators:
Pt admitted with altered mental stasis, Influenza pneumonia, UTI and ANITA
/ Registered Dietitian Note: 'Chart reviewed due to consult pt with weight loss, BMI < 19 and on wound list.
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
CBW: 96 lbs BMI 17.6 underweight range (07/23). Pts weight previous admission listed as 114 lbs (11/02/23) reflective of a 18 lb (18%) weight loss in 9 months.
During visit RD able to visulize protrusion of clavical, temporal wasting, orbital area sunken in, apparent ribs, quad muscle wasting and bucctal area sunken in.
With < 75% estimated needs > 1 month and observed muscle and fat wasting pt meets AND/ASPEN criteria for severe protein calorie malnutrition.
Based on the above information and your assessment, which of the following most accurately represents the patient's nutritional status?
Severe Protein Calorie Malnutrition
Other
Sibley Criteria (ACP Hospitalist 2017)
2 or more criteria must be present for either
non severe or severe malnutrition
Note that the criteria differs related to the
presence of an acute or chronic illness
Chronic Illness
Energy Intake Non Severe: <75% for >1 month
Severe: <75% for >1 month
Weight Loss Non Severe: 5% over 1 month
7.5% over 3 months
10% over 6 months
20% over 1 year
Severe: >5% over 1 month
>7.5% over 3 months
>10% over 6 months
>20% over 1 year
Body Fat Non Severe: Mild Loss
Severe: Severe Loss
Muscle Mass Non Severe: Mild Loss
Severe: Severe Loss
Additional criteria that can be used to Determine if Mild or Moderate Malnutrition (Merck Manual 2018)
Use of terms such as suspected, likely, concern for, or probable (associated with a specific diagnosis that is being evaluated, monitored, or treated as if it exists) are acceptable and can be coded in the inpatient setting, when documented at the
time of discharge.
Thank you,
Dina Lobo RN, BSN
CDI Specialist
Available via [employer]
Please use your independent medical judgment in providing your response.
--- NOTE | 2024-07-23 17:40 | CM ---
Patient seen at bedside with physician and CM spoke with patient granddaughter. Patient lives with granddaughter in a 2 story home. Patient family requesting VN for supports and may benefit from referral to aging and adult services for caregivers
as well as [facility] from [facility]. CM will continue to follow for discharge planning needs.
Plan home with family, VN and referrals to [facility].
[2024-07-23] MEDS: RESTORIL 7.5 MG PO (21:27)
[2024-07-23] MEDS: ROCEPHIN 1000 MG IV (21:27)
[2024-07-23] MEDS: STERILE WATER FOR INJECTION 10 ML IV (21:28)
[2024-07-23 23:00] VITALS: BP 136/68
[2024-07-24 06:00] VITALS: BMI 18.4
--- NOTE | 2024-07-24 07:28 | W.PN.HOSP.TC ---
Addendum entered and electronically signed by Sobeida Clark MD 07/24/24 17:20:
I saw and evaluated the patient independently. I reviewed the resident�s note and agree with findings and plan as documented by Dr. Gallegos.
GENERAL: elderly frail female in no apparent distress--more communicative today
HEENT: NC/AT
HEART: irreg irreg, 3/6 KESHAV
LUNGS : clear to auscultation bilaterally
ABDOM: soft, nontender, nondistended, + bowel sounds
EXT: no cyanosis, clubbing, or edema
NEUROLOGIC: unable to assess
Influenza positive with secondary Post viral pneumonia--out of window for Tamiflu treatment--neg procalcitonin--currently on rocephin/doxy
UTI--presumed with positive UA: Many bacteria,Positive positive nitrate, trace leukocyte esterase--culture pending but prelim shows gm neg bacilli
metabolic encephalopathy--due to influenza/UTI--much improved
ANITA --creat 1.1 on admission--now back to baseline of 0.8
Permanent atrial fibrillation- continue apixaban- continue metoprolol
Peripheral Arterial Disease s/p Right Lower Extremity Thrombectomy 2022-Continue Aspirin and Eliquis
Essential hypertension� Hold amlodipine due to hypotensive on adm--restart when able
severe protein calorie malnutrition
DVT PPX - on apixaban
Code status - full code
Original Note:
Today's Communication/Plan
-
Restarted amlodipine
continue current antibiotics pending sensitivities
Assessment / Plan
Assessment / Plan
Impression: This is an 88-year-old female with past medical history of permanent atrial fibrillation on anticoagulation with apixaban, CAD, valvular heart disease, hypertension presents to the emergency department with altered mental status.
Assessment/Plan:
#Influenza/Post viral pneumonia
-CXR: Right lower lobe pneumonia, mild cardiomegaly
- procalcitonin negative
- continue ceftriaxone and doxycycline
-Continue supportive care
-Restoril initially started as 7.5 Mg then increased to 15 Mg for comfort/sleep
-PT/OT eval recommendations to skilled rehab
#UTI
-Without signs of sepsis�only elevated white count
-U/A: Many bacteria,Positive positive nitrate, trace leukocyte esterase
- urine cultures showing gram-negative bacilli, pending sensitivities
- monitor for now on ceftriaxone
-Altered mental status likely due to UTI appears to be improving
#ANITA
- Does not appear volume overloaded on exam
� Continue IV fluids
- Creatinine now 0.8
#Permanent atrial fibrillation
- continue apixaban
- continue metoprolol
#Peripheral Arterial Disease s/p Right Lower Extremity Thrombectomy 2022
-Continue Aspirin and Eliquis
#Essential hypertension
� Restarted amlodipine home dose
#Severe protein calorie malnutrition
� Appears chronically ill
� Underweight BMI of 18.3
DVT PPX - on apixaban
Code status - full code
Anticipated Discharge: 24 - 48 hours
Subjective/Interval History
-
Date of Service: July 24, 2024
Patient is conversant and has no acute concerns such as nausea vomiting or abdominal pain.
Objective Data
-
Labs:
Laboratory Results
07/24/24
07:02
WBC Pending
Hgb Pending
Hct Pending
Plt Count Pending
Sodium Pending
Potassium Pending
Chloride Pending
Carbon Dioxide Pending
BUN Pending
Creatinine Pending
Glucose Pending
Calcium Pending
Total Bilirubin Pending
AST Pending
ALT Pending
Alkaline Phosphatase Pending
Vital Signs:
Vital Signs
Temp Pulse Resp BP Pulse Ox
99.1 F 89 16 136/68 96
07/23/24 23:00 07/23/24 23:00 07/23/24 23:00 07/23/24 23:00 07/23/24 23:00
I&O
07/23/24 07/24/24 07/25/24
06:59 06:59 06:59
Intake Total 370 / 370 780 / 780
Balance 370 / 370 780 / 780
Review of Systems
-
All other systems: Reviewed and negative
Physical Exam
-
General: No Apparent Distress
HEENT: Normocephalic
Respiratory: Clear to Auscultation
Cardiac: Regular Rhythm, S1/S2 and Murmur
GI: Soft, Nontender and Nondistended
Musculoskeletal: No Edema
Skin: Warm and Dry
Neuro: Awake, Alert and Oriented
Psych: Calm
[2024-07-24] MEDS: DUONEB 3 ML INH ×3 (07:57→15:58)
[2024-07-24 07:58] VITALS: BP 122/66
[2024-07-24 08:37] LABS: % Basophils 0.3 % (0-2); % Immature Granulocytes 0.6 % (0-0.5); % Lymphocytes 11.7 % (20.5-51.1); % Monocytes 7.2 % (1.7-9.3); % Neutrophils 80.2 % (42.2-75.2); Absolute Immature Granulocytes 0.1 10^3/uL (0-0.05); Absolute Lymphocytes 1.4 10^3/uL (1.2-3.4); Absolute Monocytes 0.9 10^3/uL (0.1-0.6); Absolute Neutrophils 9.8 10^3/uL (1.4-6.5); Hematocrit 30.9 % (37.0-47.0); Hemoglobin 10.3 g/dL (12.0-16.0); Mean Corp Hgb Conc. 33.3 g/dL (33.0-37.0); Mean Corpuscular Hgb 30.8 pg (27.0-31.0); Mean Corpuscular Volume 92.5 fL (81.0-99.0); Mean Platelet Volume 10.2 fL (7.4-10.4); Nucleated Red Blood Cells % 0 %; Platelet Count 353 10^3/uL (130-400); Red Blood Cell Count 3.34 10^6/uL (4.20-5.40); Red Cell Dist. Width 14.6 % (11.5-14.5); White Blood Cell Count 12.3 10^3/uL (4.8-10.8)
[2024-07-24] MEDS: VIBRAMYCIN 100 MG PO ×2 (09:13→21:05)
[2024-07-24] MEDS: LOW STRENGTH ASPIRIN 81 MG PO (09:13)
[2024-07-24 09:14] LABS: ALT (SGPT) 11 U/L (0-35); AST (SGOT) 46 U/L (14-36); Albumin 2.7 g/dl (3.5-5.0); Alkaline Phosphatase 95 U/L (38-126); Blood Urea Nitrogen 13 mg/dl (7-17); Calcium 8.2 mg/dl (8.4-10.2); Carbon Dioxide 23 mmol/L (22-30); Chloride 101 mmol/L (98-107); Estimated Creatinine Clearance 47 ml/min; Glucose 76 mg/dl (70-99); Magnesium 1.9 mg/dl (1.6-2.3); Potassium 4.9 mmol/L (3.5-5.1); Sodium 135 mmol/L (135-145); Total Bilirubin 0.8 mg/dl (0.2-1.3); Total Protein 5.9 g/dl (6.3-8.2); eGFR > 60.00
[2024-07-24] MEDS: TOPROL XL 12.5 MG PO (09:14)
[2024-07-24] MEDS: ELIQUIS 2.5 MG PO ×2 (09:14→21:05)
[2024-07-24 09:17] VITALS: BP 125/76
[2024-07-24] MEDS: TYLENOL 650 MG PO (14:06)
[2024-07-24 15:45] VITALS: BP 101/54
[2024-07-24] MEDS: NORVASC 5 MG PO (16:17)
[2024-07-24] MEDS: DUONEB INH (19:38)
[2024-07-24] MEDS: RESTORIL 15 MG PO (21:05)
[2024-07-24] MEDS: ROCEPHIN 1000 MG IV (21:06)
[2024-07-24] MEDS: STERILE WATER FOR INJECTION 10 ML IV (21:22)
[2024-07-25 00:55] VITALS: BP 108/73
[2024-07-25 06:40] LABS: % Basophils 0.3 % (0-2); % Eosinophils 0.4 % (0-6); % Immature Granulocytes 0.6 % (0-0.5); % Lymphocytes 16.6 % (20.5-51.1); % Neutrophils 71.1 % (42.2-75.2); Absolute Lymphocytes 1.1 10^3/uL (1.2-3.4); Absolute Monocytes 0.7 10^3/uL (0.1-0.6); Absolute Neutrophils 4.8 10^3/uL (1.4-6.5); Hematocrit 32.6 % (37.0-47.0); Hemoglobin 11.1 g/dL (12.0-16.0); Mean Corpuscular Hgb 31.2 pg (27.0-31.0); Mean Corpuscular Volume 91.6 fL (81.0-99.0); Mean Platelet Volume 9.3 fL (7.4-10.4); Nucleated Red Blood Cells % 0 %; Platelet Count 342 10^3/uL (130-400); Red Blood Cell Count 3.56 10^6/uL (4.20-5.40); Red Cell Dist. Width 14.4 % (11.5-14.5); White Blood Cell Count 6.7 10^3/uL (4.8-10.8)
[2024-07-25 07:17] LABS: Blood Urea Nitrogen 6 mg/dl (7-17); Calcium 8.1 mg/dl (8.4-10.2); Carbon Dioxide 25 mmol/L (22-30); Chloride 103 mmol/L (98-107); Estimated Creatinine Clearance 47 ml/min; Glucose 90 mg/dl (70-99); Potassium 3.4 mmol/L (3.5-5.1); Sodium 136 mmol/L (135-145); eGFR > 60.00
--- NOTE | 2024-07-25 07:18 | W.PN.HOSP.TC ---
Addendum entered and electronically signed by Sobeida Clark MD 07/25/24 14:38:
I saw and evaluated the patient independently. I reviewed the resident�s note and agree with findings and plan as documented by Dr. Gallegos.
GENERAL: elderly frail female in no apparent distress
HEENT: NC/AT
HEART: irreg irreg, 3/6 KESHAV
LUNGS : clear to auscultation bilaterally
ABDOM: soft, nontender, nondistended, + bowel sounds
EXT: no cyanosis, clubbing, or edema
NEUROLOGIC: unable to assess
Influenza positive with secondary Post viral pneumonia--out of window for Tamiflu treatment--neg procalcitonin--currently on rocephin/doxy
UTI--culture pending but prelim shows gm neg bacilli--identification not back nor are sensitivities--abx determination for d/c based on results which should be back before noon 07/26/24
metabolic encephalopathy--due to influenza/UTI--much improved
ANITA --creat 1.1 on admission--now back to baseline of 0.8
Permanent atrial fibrillation- continue apixaban- continue metoprolol
Peripheral Arterial Disease s/p Right Lower Extremity Thrombectomy 2022-Continue Aspirin and Eliquis
Essential hypertension� Hold amlodipine due to hypotensive on adm--restart when able
severe protein calorie malnutrition
DVT PPX - on apixaban
Code status - full code
home with family--hopefully tomorrow
Original Note:
Today's Communication/Plan
-
Continue ceftriaxone/doxycycline
Pending urine culture and sensitivities
Assessment / Plan
Assessment / Plan
Impression: This is an 88-year-old female with past medical history of permanent atrial fibrillation on anticoagulation with apixaban, CAD, valvular heart disease, hypertension presents to the emergency department with altered mental status.
Assessment/Plan:
#Influenza/Post viral pneumonia
-CXR: Right lower lobe pneumonia, mild cardiomegaly
- procalcitonin negative
- continue ceftriaxone and doxycycline
-Continue supportive care
-Restoril initially started as 7.5 Mg then increased to 15 Mg for comfort/sleep
-PT/OT eval recommendations to skilled rehab
#UTI
-Without signs of sepsis�only elevated white count
-U/A: Many bacteria,Positive positive nitrate, trace leukocyte esterase
- urine cultures showing gram-negative bacilli, pending sensitivities
- monitor for now on ceftriaxone
-Altered mental status likely due to UTI appears to be improving
#ANITA- resolved
- Does not appear volume overloaded on exam
- Creatinine now 0.8
#Permanent atrial fibrillation
- continue apixaban
- continue metoprolol
#Peripheral Arterial Disease s/p Right Lower Extremity Thrombectomy 2022
-Continue Aspirin and Eliquis
#Essential hypertension
� Continue amlodipine home dose
#Severe protein calorie malnutrition
� Appears chronically ill
� Underweight BMI of 18.3
DVT PPX - on apixaban
Code status - full code
Anticipated Discharge: 24 - 48 hours
Subjective/Interval History
-
Date of Service: July 25, 2024
Patient has no acute concerns of fever, nausea or abdominal pain.
Objective Data
-
Labs:
Laboratory Results
07/25/24
06:09
WBC 6.7
Hgb 11.1 L
Hct 32.6 L
Plt Count 342
Sodium 136
Potassium 3.4 L D
Chloride 103
Carbon Dioxide 25
BUN 6 L
Creatinine 0.4 L
Glucose 90
Calcium 8.1 L
Vital Signs:
Vital Signs
Temp Pulse Resp BP Pulse Ox
98 F 77 16 108/73 96
07/25/24 00:55 07/25/24 00:55 07/25/24 00:55 07/25/24 00:55 07/25/24 00:55
I&O
07/24/24 07/25/24 07/26/24
06:59 06:59 06:59
Intake Total 780 / 780 880 / 880
Balance 780 / 780 880 / 880
Review of Systems
-
All other systems: Reviewed and negative
Physical Exam
-
General: No Apparent Distress and Appears Chronically Ill
HEENT: Normocephalic
Respiratory: Clear to Auscultation
Cardiac: Regular Rhythm, S1/S2 and Murmur
GI: Soft, Nontender and Nondistended
Musculoskeletal: No Edema
Skin: Warm and Dry
Neuro: Awake and Alert
Psych: Calm
[2024-07-25] MEDS: DUONEB 3 ML INH ×4 (07:46→20:01)
[2024-07-25 08:13] VITALS: BP 160/87
[2024-07-25] MEDS: KCL 40 MEQ PO (08:18)
[2024-07-25] MEDS: VIBRAMYCIN 100 MG PO ×2 (08:19→21:04)
[2024-07-25] MEDS: NORVASC 5 MG PO (08:19)
[2024-07-25] MEDS: LOW STRENGTH ASPIRIN 81 MG PO (08:19)
[2024-07-25] MEDS: ELIQUIS 2.5 MG PO ×2 (08:20→21:04)
[2024-07-25] MEDS: IMDUR (EXTENDED RELEASE) 60 MG PO (08:20)
[2024-07-25] MEDS: TOPROL XL 12.5 MG PO (08:20)
[2024-07-25] MEDS: TYLENOL 650 MG PO (11:18)
[2024-07-25 15:00] VITALS: BP 120/68
[2024-07-25] MEDS: RESTORIL 15 MG PO (21:04)
[2024-07-25] MEDS: ROCEPHIN 1000 MG IV (21:05)
[2024-07-25] MEDS: STERILE WATER FOR INJECTION 10 ML IV (21:05)
[2024-07-25 22:58] VITALS: BP 129/88
[2024-07-26 06:00] VITALS: BMI 17.7
[2024-07-26 06:46] LABS: % Basophils 0.1 % (0-2); % Eosinophils 0.6 % (0-6); % Immature Granulocytes 0.7 % (0-0.5); % Lymphocytes 11.6 % (20.5-51.1); % Monocytes 9.2 % (1.7-9.3); % Neutrophils 77.8 % (42.2-75.2); Absolute Eosinophils 0.1 10^3/uL (0-0.7); Absolute Immature Granulocytes 0.1 10^3/uL (0-0.05); Absolute Monocytes 0.8 10^3/uL (0.1-0.6); Absolute Neutrophils 6.6 10^3/uL (1.4-6.5); Hematocrit 32.9 % (37.0-47.0); Hemoglobin 10.9 g/dL (12.0-16.0); Mean Corp Hgb Conc. 33.1 g/dL (33.0-37.0); Mean Corpuscular Hgb 30.6 pg (27.0-31.0); Mean Corpuscular Volume 92.4 fL (81.0-99.0); Mean Platelet Volume 9.7 fL (7.4-10.4); Nucleated Red Blood Cells % 0 %; Platelet Count 395 10^3/uL (130-400); Red Blood Cell Count 3.56 10^6/uL (4.20-5.40); Red Cell Dist. Width 14.6 % (11.5-14.5); White Blood Cell Count 8.5 10^3/uL (4.8-10.8)
[2024-07-26 07:15] LABS: Blood Urea Nitrogen 6 mg/dl (7-17); Carbon Dioxide 27 mmol/L (22-30); Chloride 102 mmol/L (98-107); Estimated Creatinine Clearance 46 ml/min; Glucose 87 mg/dl (70-99); Potassium 3.8 mmol/L (3.5-5.1); Sodium 139 mmol/L (135-145); eGFR > 60.00
--- NOTE | 2024-07-26 07:34 | W.PN.HOSP.TC ---
Addendum entered and electronically signed by Jia Luong MD 07/26/24 14:52:
I saw and evaluated the patient. I reviewed the resident�s note and agree with findings and plan as documented in the resident�s note.
A/P:
# Influenza positive with secondary Post viral pneumonia
out of window for Tamiflu treatment
neg procalcitonin but could cover empirically with rocephin/doxy anyway, total course 5 days
# UTI with E. coli, sensitivity reviewed
Rocephin as stated above with coverage
# metabolic encephalopathy due to influenza/UTI, improved
# ANITA, resolved
creat 1.1 -> 0.4
# Permanent atrial fibrillation
continue apixaban, continue metoprolol
# Peripheral Arterial Disease s/p Right Lower Extremity Thrombectomy 2022
Continue Aspirin and Eliquis
# Essential hypertension
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
# severe protein calorie malnutrition
DVT PPX - on apixaban
Code status - full code
Original Note:
Today's Communication/Plan
-
Continue ceftriaxone
Bilateral Lower extremities Doppler pending
Assessment / Plan
Assessment / Plan
Impression: This is an 88-year-old female with past medical history of permanent atrial fibrillation on anticoagulation with apixaban, CAD, valvular heart disease, hypertension presents to the emergency department with altered mental status.
Assessment/Plan:
#Influenza/Post viral pneumonia
-CXR: Right lower lobe pneumonia, mild cardiomegaly
- procalcitonin negative
- continue ceftriaxone and doxycycline
-Continue supportive care
-Restoril initially started as 7.5 Mg then increased to 15 Mg for comfort/sleep
-PT/OT eval recommendations to skilled rehab
#UTI
-Without signs of sepsis�only elevated white count
-U/A: Many bacteria,Positive positive nitrate, trace leukocyte esterase
- urine cultures showing E. coli currently on ceftriaxone which it is sensitive, will transition to cefdinir on discharge
-Altered mental status likely due to UTI appears to be improving
#ANITA- resolved
- Does not appear volume overloaded on exam
- Creatinine now 0.8
#Permanent atrial fibrillation
- continue apixaban
- continue metoprolol
#Peripheral Arterial Disease s/p Right Lower Extremity Thrombectomy 2022
-Continue Aspirin and Eliquis
-Patient complained of pain in RLE, Doppler ordered
#Essential hypertension
� Continue amlodipine home dose
#Severe protein calorie malnutrition
� Appears chronically ill
� Underweight BMI of 18.3
DVT PPX - on apixaban
Code status - full code
Anticipated Discharge: 24 - 48 hours
Subjective/Interval History
-
Date of Service: July 26, 2024
Patient has no acute concerns at the time of my examination, denied any nausea, fever or vomiting.
Objective Data
-
Labs:
Laboratory Results
07/26/24
06:18
WBC 8.5
Hgb 10.9 L
Hct 32.9 L
Plt Count 395
Sodium 139
Potassium 3.8
Chloride 102
Carbon Dioxide 27
BUN 6 L
Creatinine 0.4 L
Glucose 87
Calcium 8.0 L
Vital Signs:
Vital Signs
Temp Pulse Resp BP Pulse Ox
98.3 F 105 16 129/88 98
07/25/24 22:58 07/25/24 22:58 07/25/24 22:58 07/25/24 22:58 07/25/24 22:58
I&O
07/25/24 07/26/24 07/27/24
06:59 06:59 06:59
Intake Total 880 / 880 960 / 960
Balance 880 / 880 960 / 960
Review of Systems
-
All other systems: Reviewed and negative
Physical Exam
-
General: No Apparent Distress and Appears Chronically Ill
HEENT: Normocephalic
Respiratory: Clear to Auscultation
Cardiac: Regular Rhythm, S1/S2 and Murmur
GI: Soft, Nontender and Nondistended
Musculoskeletal: No Edema
Skin: Warm and Dry
Neuro: Awake, Alert and Oriented
Psych: Calm
[2024-07-26 07:35] VITALS: BP 130/78
[2024-07-26] MEDS: DUONEB 3 ML INH ×4 (08:18→20:27)
[2024-07-26] MEDS: NORVASC 5 MG PO (08:52)
[2024-07-26] MEDS: TOPROL XL 12.5 MG PO (08:52)
[2024-07-26] MEDS: LOW STRENGTH ASPIRIN 81 MG PO (08:52)
[2024-07-26] MEDS: VIBRAMYCIN 100 MG PO ×2 (08:53→21:02)
[2024-07-26] MEDS: ELIQUIS 2.5 MG PO ×2 (08:53→21:02)
[2024-07-26 09:58] VITALS: BP 130/78; PULSE 87; O2SAT 95
--- NOTE | 2024-07-26 11:26 | PTCARENOTE ---
Pt c/o pain throughout RLE. Pt family member at bedside informed this RN of history of previous procedures in right leg. Pt family requested vascular surgery consult. MD and resident made aware.
--- NOTE | 2024-07-26 11:35 | CM ---
Patient seen at bedside, resting. CM called to patient granddaughter and provided information about [facility] benefits and family to follow up with [facility] for possible supports. CM will also place referral to [facility] for assessment of needs and
family aware. CM reviewed IMM with granddaughter and plan is for possible discharge tomorrow. CM will leave IMM for granddaughter to sign. Family requested [facility] referral CM will update Liaison and continue to follow for discharge planning needs.
Plan; home with family supports/[facility] referral; [facility] referral and [facility] benefits assessment.
--- NOTE | 2024-07-26 12:42 | VNURNOTE ---
Home Health Liaison spoke with patient's granddaughter to discuss [facility] nurse/therapy, visits, schedule and homebound status. She is agreeable and understand that visits at home will be 2-3 x per week to assess and teach medical management.
Granddaughter is a MA at vascular dept. Granddaughter is aware that [facility] will contact them for start of care in 1-2 days after discharge from . Granddaughter declined home [employer] when offered. [facility] referral completed in [facility].
[2024-07-26 16:00] VITALS: BP 139/75
[2024-07-26] MEDS: STERILE WATER FOR INJECTION 10 ML IV (21:02)
[2024-07-26] MEDS: RESTORIL 15 MG PO (21:02)
[2024-07-26] MEDS: ROCEPHIN 1000 MG IV (21:02)
[2024-07-26] MEDS: MELATONIN 5 MG PO (22:19)
[2024-07-26 23:00] VITALS: BP 131/66
[2024-07-27 04:53] VITALS: BMI 16.2
[2024-07-27 06:23] VITALS: BMI 16.2
[2024-07-27 06:55] LABS: Blood Urea Nitrogen 6 mg/dl (7-17); Calcium 7.7 mg/dl (8.4-10.2); Carbon Dioxide 29 mmol/L (22-30); Chloride 102 mmol/L (98-107); Estimated Creatinine Clearance 42 ml/min; Glucose 87 mg/dl (70-99); Potassium 3.3 mmol/L (3.5-5.1); Sodium 137 mmol/L (135-145); eGFR > 60.00
[2024-07-27 07:00] VITALS: BP 125/79
--- NOTE | 2024-07-27 07:15 | W.PN.HOSP.TC ---
Addendum entered and electronically signed by Jia Luong MD 07/27/24 13:16:
I personally performed a history and physical exam of the patient and discussed management with the resident. I reviewed the resident's note and agree with the documented findings and plan of care HPI/CC.
A/P:
# Influenza positive with secondary Post viral pneumonia
out of window for Tamiflu treatment
neg procalcitonin but was covered empirically with Rocephin/doxy x5 days
# UTI with E. coli, sensitivity reviewed
s/p Rocephin as above
# metabolic encephalopathy due to influenza/UTI, improved
# ANITA, resolved
creat 1.1 -> 0.5 today
# Permanent atrial fibrillation
continue apixaban, continue metoprolol
# Peripheral Arterial Disease s/p Right Lower Extremity Thrombectomy 2022
Continue Aspirin and Eliquis
# Essential hypertension
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
# severe protein calorie malnutrition
# Hypokalemia
# Hypomagnesemia
Replete lytes
DVT PPX - on apixaban
Code status - full code
Dispo: HH
Original Note:
Today's Communication/Plan
-
IV mag repletion
Dispo to home pending today
Assessment / Plan
Assessment / Plan
Impression: This is an 88-year-old female with past medical history of permanent atrial fibrillation on anticoagulation with apixaban, CAD, valvular heart disease, hypertension presents to the emergency department with altered mental status.
Assessment/Plan:
#Influenza/Post viral pneumonia
-CXR: Right lower lobe pneumonia, mild cardiomegaly
- procalcitonin negative
- continue ceftriaxone and doxycycline
-Continue supportive care
-Restoril initially started as 7.5 Mg then increased to 15 Mg for comfort/sleep
-PT/OT eval recommendations to skilled rehab but patient is going home with VN
� Discontinue antibiotics upon discharge as patient completed course
� Dispo to home pending today after IV mag repletion
#UTI
-Without signs of sepsis�only elevated white count
-U/A: Many bacteria,Positive positive nitrate, trace leukocyte esterase
- urine cultures showing E. coli currently on ceftriaxone which it is sensitive
-Altered mental status likely due to UTI appears to be improving
#ANITA- resolved
- Does not appear volume overloaded on exam
- Creatinine now 0.8
#Permanent atrial fibrillation
- continue apixaban
- continue metoprolol
#Peripheral Arterial Disease s/p Right Lower Extremity Thrombectomy 2022
-Continue Aspirin and Eliquis
-Patient complained of pain in RLE, Doppler ordered and was negative
#Essential hypertension
� Continue amlodipine home dose
#Severe protein calorie malnutrition
� Appears chronically ill
� Underweight BMI of 18.3
DVT PPX - on apixaban
Code status - full code
Anticipated Discharge: Today
Subjective/Interval History
-
Date of Service: July 27, 2024
Objective Data
-
Labs:
Laboratory Results
07/27/24
06:03
Sodium 137
Potassium 3.3 L
Chloride 102
Carbon Dioxide 29
BUN 6 L
Creatinine 0.5 L
Glucose 87
Calcium 7.7 L
Vital Signs:
Vital Signs
Temp Pulse Resp BP Pulse Ox
97.8 F 79 12 131/66 98
07/26/24 23:00 07/26/24 23:00 07/26/24 23:00 07/26/24 23:00 07/26/24 20:30
I&O
07/26/24 07/27/24 07/28/24
06:59 06:59 06:59
Intake Total 960 / 960 840 / 840
Balance 960 / 960 840 / 840
Review of Systems
-
All other systems: Reviewed and negative
Physical Exam
-
General: No Apparent Distress
HEENT: Normocephalic
Respiratory: Clear to Auscultation
Cardiac: Regular Rhythm and S1/S2
GI: Soft, Nontender and Nondistended
Musculoskeletal: No Edema
Skin: Warm and Dry
Neuro: Awake, Alert and Oriented
Psych: Calm
[2024-07-27 07:58] LABS: % Basophils 0.2 % (0-2); % Eosinophils 1.1 % (0-6); % Immature Granulocytes 0.6 % (0-0.5); % Lymphocytes 19.4 % (20.5-51.1); % Monocytes 13.3 % (1.7-9.3); % Neutrophils 65.4 % (42.2-75.2); Absolute Eosinophils 0.1 10^3/uL (0-0.7); Absolute Lymphocytes 1.1 10^3/uL (1.2-3.4); Absolute Monocytes 0.7 10^3/uL (0.1-0.6); Absolute Neutrophils 3.5 10^3/uL (1.4-6.5); Hematocrit 32.2 % (37.0-47.0); Hemoglobin 10.6 g/dL (12.0-16.0); Mean Corp Hgb Conc. 32.9 g/dL (33.0-37.0); Mean Corpuscular Hgb 30.8 pg (27.0-31.0); Mean Corpuscular Volume 93.6 fL (81.0-99.0); Nucleated Red Blood Cells % 0 %; Platelet Count 371 10^3/uL (130-400); Red Blood Cell Count 3.44 10^6/uL (4.20-5.40); Red Cell Dist. Width 14.7 % (11.5-14.5); White Blood Cell Count 5.4 10^3/uL (4.8-10.8)
[2024-07-27] MEDS: DUONEB 3 ML INH (08:57)
[2024-07-27] MEDS: KCL 40 MEQ PO (09:39)
[2024-07-27] MEDS: TOPROL XL 12.5 MG PO (09:40)
[2024-07-27] MEDS: LOW STRENGTH ASPIRIN 81 MG PO (09:41)
[2024-07-27] MEDS: IMDUR (EXTENDED RELEASE) 60 MG PO (09:41)
[2024-07-27] MEDS: NORVASC 5 MG PO (09:41)
[2024-07-27] MEDS: ELIQUIS 2.5 MG PO (09:41)
[2024-07-27] MEDS: VIBRAMYCIN 100 MG PO (09:42)
[2024-07-27 09:43] LABS: Magnesium 1.4 mg/dl (1.6-2.3)
--- NOTE | 2024-07-27 10:56 | CM ---
Patient seen at bedside. IMM form left in room for granddaughter. [facility] to follow and patient family provided with referral to [facility] for further services/assessments. CM will continue to follow for discharge planning needs.
Plan; home with VN; [facility] supports from family and [facility]/ [facility]
[2024-07-27 10:59] LABS: Potassium 3.7 mmol/L (3.5-5.1)
[2024-07-27 11:01] VITALS: BP 121/61; BP 92/71; PULSE 71; O2SAT 99
--- NOTE | 2024-07-27 11:10 | PTCARENOTE ---
Per OT, patient c/o dizziness with standing and was orthostatic. (see OT note). Dr. Luong made aware prior to going into see patient for rounds. will continue to monitor.
[2024-07-27] MEDS: MAGNESIUM SULFATE 50 IV (11:57)
--- NOTE | 2024-07-27 12:36 | VNURNOTE ---
Received info from [facility] Intake office that per patient's PCP, Dr Mae, she has not seen them since Jul. (multiple attempts were made to get her in the office). PCP will not sign for home care until he sees pt. Could be open to a telehealth
visit. [facility] liaison spoke to both patient and granddaughter Nori and notified. They are agreeable and verbalize understanding that pt has to be seen by PCP before [facility] can start services.
[2024-07-27] MEDS: TYLENOL 650 MG PO (12:37)
[2024-07-27] MEDS: DUONEB INH (12:40)
--- NOTE | 2024-07-27 13:09 | W.DCSUMMARY ---
Documented by User: Della Gallegos MD, Resident 07/27/24 13:17
Discharge Summary
Discharge Data
Date of Admission: 07/22/24
Date of Discharge: 07/27/24
-
Pending Results: No
Hospital Course
Discharging Physician : Dr. Luong,
Disposition : Home with VN
Principal Discharge diagnosis :
Chronic Discharge diagnosis :
Hospital Course : This is an 88-year-old female with past medical history of permanent atrial fibrillation on anticoagulation with apixaban, CAD, valvular heart disease, hypertension presents to the emergency department with altered mental status.
Patient's chest x-ray showed right lower lobe pneumonia and she was started on ceftriaxone and doxycycline along with supportive care. Patient's urinary culture showed E. coli for which was sensitive to ceftriaxone for which patient already was on
for pneumonia treatment. Her altered mental status improved. Patient had right lower extremity pain and Doppler was ordered due to her history of DVT, Doppler was negative. Patient's other chronic comorbidities were stable and home medications
were continued. Patient improved and is stable for discharge with transition to oral antibiotics cefdinir.
Important imaging findings :
07/22/2024 CXR: Right lower lobe pneumonia
07/26/2024 peripheral vascular ultrasound: No sonographic evidence for lower extremity venous thrombosis
Discharge Plan
-
Patient Disposition: Home with Home Care
Discharge Diagnosis/Procedures: UTI (completed antibiotic treatment during hospital stay)
Pneumonia (completed antibiotic treatment during hospital stay)
Permanent atrial fibrillation
Peripheral arterial disease s/p right lower extremity thrombectomy 2022
Essential hypertension
Condition: Fair
Diet: Regular
Activity: As tolerated
Driving Restrictions: As prior to admission
Bathing Restrictions: OK to Shower
Other Services: VN
Wound Care: Wound Care Instructions
DTI Buttocks- Clean with normal saline or soap and water. Apply Calazime to open areas PRN. May cover with silicone border foam and change Q 48 hours and PRN.
Bilateral Heels- No-sting barrier and adhesive foam. Change Q 72 hours and PRN if loose.
Air cushion to chair/bed
Turning schedule
Keep heels off-loaded with pillow or air cushion under calves
Waffle boots to bilateral heels
Follow up at wound care center call for an appointment.
Referrals:
Ernesto Mae, DO [Family Provider] -
UNKNOWN - PT DOES,NOT KNOW [Unknown Provider] - in less than 1 week
Additional Discharge Medication Instructions: We have decreased amlodipine from 5 to 2.5 mg to help with your orthostasis
Prescriptions:
New
amlodipine 2.5 mg Tablet
2.5 mg PO DAILY 30 Days Qty: 30 0RF
Continued
isosorbide mononitrate 60 mg Tablet Extended Release 24 Hr
60 mg PO Q48H
Patient Comments:
07/22/24: prescribed for pt. to take daily but pt. takes more sporadically. Family estimates every other day
oxycodone-acetaminophen 10-325 mg Tablet
1 tab PO DAILYPRN PRN (Reason: severe pain)
acetaminophen 325 mg tablet
650 mg PO Q6HPRN PRN (Reason: mild pain)
aspirin [Children's Aspirin] 81 mg Tablet,Chewable
81 mg PO DAILY Qty: 100 0RF
guaifenesin 100 mg/5 mL Liquid
200 mg PO Q4HPRN PRN (Reason: cough)
guaifenesin [Mucinex] 1,200 mg Tablet Extended Release 12hr
1,200 mg PO BIDPRN PRN (Reason: cough/congestion )
temazepam 15 mg capsule
30 mg PO HS
Eliquis 2.5 mg Tablet
2.5 mg PO BID Qty: 60 0RF
metoprolol succinate 25 mg Tablet Extended Release 24 Hr
12.5 mg PO DAILY 30 Days Qty: 15 0RF
Patient Comments:
07/22/24: prescribed for pt. to take daily but pt. takes more sporadically. Family estimates every other day
Discontinued
amlodipine 5 mg Tablet
5 mg PO DAILY
Discharge Orders:
Discharge Patient (As Directed); Ordered 07/27/24
Ordered By: Della Gallegos
Discharge Date and Time
Discharge Date/Time: 07/27/24 14:11
Print Language: BARBADIAN

Documented by User: Jia Luong MD 07/28/24 13:02
Discharge Summary
Discharge Data
Date of Admission: 07/22/24
Date of Discharge: 07/27/24
Hospital Course
Discharging Physician : Dr.Kasarapu Archie
Disposition : Home with VN
Principal Discharge diagnosis :
UTI (completed antibiotic treatment during hospital stay)
Pneumonia (completed antibiotic treatment during hospital stay)
Hospital Course: This is an 88-year-old female with past medical history of permanent atrial fibrillation on anticoagulation with apixaban, CAD, valvular heart disease, hypertension presented with altered mental status. Patient's chest x-ray showed
right lower lobe pneumonia and she was treated with ceftriaxone and doxycycline (completed antibiotic course during hospital stay). Patient's urine culture grew E. coli that is sensitive to ceftriaxone (she is already on it for pneumonia treatment).
Her altered mental status improved. Patient's other chronic comorbidities were stable. Patient improved and was discharged.
Important imaging findings :
07/22/2024 CXR: Right lower lobe pneumonia
07/26/2024 peripheral vascular ultrasound: No sonographic evidence for lower extremity venous thrombosis
Discharge Plan
-
Patient Disposition: Home with Home Care
Discharge Diagnosis/Procedures: UTI (completed antibiotic treatment during hospital stay)
Pneumonia (completed antibiotic treatment during hospital stay)
Permanent atrial fibrillation
Peripheral arterial disease s/p right lower extremity thrombectomy 2022
Essential hypertension
Condition: Fair
Diet: Regular
Activity: As tolerated
Driving Restrictions: As prior to admission
Bathing Restrictions: OK to Shower
Other Services: VN
Wound Care: Wound Care Instructions
DTI Buttocks- Clean with normal saline or soap and water. Apply Calazime to open areas PRN. May cover with silicone border foam and change Q 48 hours and PRN.
Bilateral Heels- No-sting barrier and adhesive foam. Change Q 72 hours and PRN if loose.
Air cushion to chair/bed
Turning schedule
Keep heels off-loaded with pillow or air cushion under calves
Waffle boots to bilateral heels
Follow up at wound care center call for an appointment.
Referrals:
Ernesto Mae, DO [Family Provider] -
UNKNOWN - PT DOES,NOT KNOW [Unknown Provider] - in less than 1 week
Additional Discharge Medication Instructions: We have decreased amlodipine from 5 to 2.5 mg to help with your orthostasis
Prescriptions:
New
amlodipine 2.5 mg Tablet
2.5 mg PO DAILY 30 Days Qty: 30 0RF
Continued
isosorbide mononitrate 60 mg Tablet Extended Release 24 Hr
60 mg PO Q48H
Patient Comments:
07/22/24: prescribed for pt. to take daily but pt. takes more sporadically. Family estimates every other day
oxycodone-acetaminophen 10-325 mg Tablet
1 tab PO DAILYPRN PRN (Reason: severe pain)
acetaminophen 325 mg tablet
650 mg PO Q6HPRN PRN (Reason: mild pain)
aspirin [Children's Aspirin] 81 mg Tablet,Chewable
81 mg PO DAILY Qty: 100 0RF
guaifenesin 100 mg/5 mL Liquid
200 mg PO Q4HPRN PRN (Reason: cough)
guaifenesin [Mucinex] 1,200 mg Tablet Extended Release 12hr
1,200 mg PO BIDPRN PRN (Reason: cough/congestion )
temazepam 15 mg capsule
30 mg PO HS
Eliquis 2.5 mg Tablet
2.5 mg PO BID Qty: 60 0RF
metoprolol succinate 25 mg Tablet Extended Release 24 Hr
12.5 mg PO DAILY 30 Days Qty: 15 0RF
Patient Comments:
07/22/24: prescribed for pt. to take daily but pt. takes more sporadically. Family estimates every other day
Discontinued
amlodipine 5 mg Tablet
5 mg PO DAILY
Discharge Orders:
Discharge Patient (As Directed); Ordered 07/27/24
Ordered By: Della Gallegos
Discharge Date and Time
Discharge Date/Time: 07/27/24 14:11
Print Language: BARBADIAN
[2024-07-27 13:36] VITALS: BP 92/53
--- NOTE | 2024-07-27 13:48 | PTCARENOTE ---
patient medicated with Tylenol for c/o headache (see MAR), will continue to monitor.
--- NOTE | 2024-07-27 14:00 | PTCARENOTE ---
PRN Tylenol effective for c/o headache.
--- NOTE | 2024-07-27 14:15 | PTCARENOTE ---
Rn inventory coordinator-Patient left without her medications. Called to pharmacy to medications to the floor. Called to patient and left message on patient's phone also attempted to contact patients emergency contact.
== END 2024-07-27 14:11 | disposition home health service (06) | DRG 193 ==
LOC: 3 WEST ACU 23:54
PROVIDERS: Physician Assistant Medical; Student in an Organized Health Care Education/Training Program; ADMITTING PHYSICIAN Internal Medicine; ATTENDING PHYSICIAN Internal Medicine; EMERGENCY PHYSICIAN Student in an Organized Health Care Education/Training Program; FAMILY PHYSICIAN Family Medicine
DX: J10.08 Influenza due to other identified influenza virus with other specified pneumonia (principal); E43 Unspecified severe protein-calorie malnutrition; G93.41 Metabolic encephalopathy; N39.0 Urinary tract infection, site not specified; I48.21 Permanent atrial fibrillation; I50.32 Chronic diastolic (congestive) heart failure; N17.9 Acute kidney failure, unspecified; E87.1 Hypo-osmolality and hyponatremia; Z68.1 Body mass index [BMI] 19.9 or less, adult; B96.20 Unspecified Escherichia coli [E. coli] as the cause of diseases classified elsewhere; I73.9 Peripheral vascular disease, unspecified; I25.10 Atherosclerotic heart disease of native coronary artery without angina pectoris; I27.20 Pulmonary hypertension, unspecified; I11.0 Hypertensive heart disease with heart failure; Z98.84 Bariatric surgery status; Z79.01 Long term (current) use of anticoagulants; E87.6 Hypokalemia; E83.42 Hypomagnesemia; Z11.52 Encounter for screening for COVID-19
CPT/HCPCS: 71046; 80048; 80053; 81003; 81015; 83735; 84132; 85025; 85027; 87077; 87086; 87186; 87502; 87811; 93005; 93970; 94640; 96361; 96374; 97163; 97167; 97530; 97535; 99285

== ENCOUNTER → 2024-10-12 14:57 | Outpatient (REF) | payer MEDICARE, OTHER, SELFPAY | LOC: RAD 14:57 | PROVIDERS: ATTENDING PHYSICIAN Registered Nurse | DX: I74.3 Embolism and thrombosis of arteries of the lower extremities (principal); I73.9 Peripheral vascular disease, unspecified | CPT/HCPCS: 93922; 93925 ==

== ENCOUNTER 2025-05-02 14:58 | Emergency (ER) | payer MEDICARE, OTHER, SELFPAY ==
[2025-05-02 15:07] VITALS: BP 74/23
[2025-05-02 15:08] LABS: Glucose - Point of Care 308 mg/dl (70-99)
[2025-05-02] MEDS: LEVOPHED 250 IV (15:23)
--- NOTE | 2025-05-02 15:27 | ED.GENMED ---
History of Present Illness
General
Chief Complaint: CODE
Source: family (granddaughter, son-in-law) and ambulance crew
Exam Limitations: clinical condition and altered mental status
Time Seen by Provider: 05/02/25 15:25
History of Present Illness
History of Present Illness:
89-year-old female brought to the emergency room by ambulance after being found by family at home unresponsive. Patient last seen yesterday by a relative who was not here in the emergency room but evidently noted that she was sleeping. Patient's
son-in-law came over to check on her 2 PM today and found her not responsive with unusual respiratory pattern. Granddaughter was called and called 911. Patient was unresponsive for medics. They describe her as being in PEA and asystole. She
received a total of 4 doses of epinephrine. They were able to achieve ROSC. Patient arrives here in A-fib with a heart rate in the 100s. Initially normal blood pressure.
Past History
Past History
ED Past Medical History: Arrthythmia and Other (AFIB); Negative NIDDM or Seizures
Social History
Tobacco: Non-smoker
Alcohol: None
Drug: None
Living: with family
Employment: Retired
Family History
Family History: Other (n/c)
Phy Exam
Physical Exam
Physical Exam:
General: Completely unresponsive, does not respond to pain
Vitals: Tachycardic, hypotensive, hypothermic
Head: Atraumatic
Eyes: Pupils about 4 mm, not reactive
Throat: Intubated
Neck: Trachea midline
Lungs: Coarse breath sounds with [id number] ventilation
Heart: Distant heart sounds
Abd: Soft, Nontender, No pulsatile mass
Back: Mottled, similar appearance to lividity
Neuro: No voluntary response
Skin: Warm, dry, no rash
Extremities: pulses equal b/l, no edema
Course
Orders/Labs/Results
Orders:
Orders
05/02/25 15:01
CXR [CR Chest Portable - 1 View] Stat
Comment:
Reason For Exam: code
Reason Study Needs to be Portable: Patient Unstable
05/02/25 15:02
Electrocardiogram (*1) Urgent
Reason for Study: Chest Pain
EKG- Treatment ONCE
05/02/25 15:09
Complete Blood Count/With Diff Urgent
Comprehensive Metabolic Panel Urgent
Creatine Phosphokinase Urgent
Comment: ADD ON
Manual Differential Urgent
05/02/25 15:11
Free T4 Urgent
Lactic Acid Q4H
Comment: ON ICE, CANCEL 2ND ORDER IF FIRST LACTIC ACID LEVEL <2
PTT Urgent
TSH Reflex To Free T4 Urgent
Comment: ADD ON
Troponin I Urgent
05/02/25 15:15
Dextrose 50%-Water [Dextrose 50% Syringe] 25 grams .ROUTE .STK-MED ONE
05/02/25 15:26
Add On- LAB Urgent
Tests Added?: tsh, reflex t4
05/02/25 15:30
Add On- LAB Urgent
Tests Added?: cpk
NORepinephrine 4 MG/250 ML [Levophed] 4 mg in 250 ml IV PER PROTOCOL
05/02/25 15:37
Lactated Ringers [Lr] 1,000 ml IV BOLUS
05/02/25 15:42
Calcium Gluconate 1,000 mg IV NOW STA
Dextrose 50%-Water [Dextrose 50% Syringe] 12.5 grams IV [id number] PRN
Dextrose 50%-Water [Dextrose 50% Syringe] 25 grams IV NOW STA
Insulin Human Regular [Novolin R] 5 units IV NOW STA
05/02/25 15:43
Bedside Glucose PRE IV Insulin- HyperK+ NOW
05/02/25 15:45
Vasopressin 20 Units/100 ml [Pitressin] 20 units in 100 ml IV PER PROTOCOL
05/02/25 16:01
Morphine Sulfate 4 mg IV NOW STA
Extubate Patient [RCUNC] Urgent
05/02/25 17:13
Bedside Glucose POST IV Insulin- HyperK+ Q1HX2,Q2HX2
Abnormal Lab Results
05/02/25 05/02/25 05/02/25
15:07 15:09 15:11
RBC 2.05 L 10^6/uL
(4.20-5.40)
Hgb 6.8 L* g/dL
(12.0-16.0)
Hct 22.0 L %
(37.0-47.0)
MCV 107.3 H fL
(81.0-99.0)
MCH 33.2 H pg
(27.0-31.0)
MCHC 30.9 L g/dL
(33.0-37.0)
RDW 19.3 H %
(11.5-14.5)
Segmented Neutrophils 13 L %
(42-75)
Band Neutrophils 9 H %
(0-3)
Lymphocytes (Manual) 64 H %
(20-51)
APTT 65.7 H Sec
(23.4-35.0)
Sodium 132 L mmol/L
(135-145)
Potassium 6.1 H* mmol/L
(3.5-5.1)
Carbon Dioxide 6 L* mmol/L
(22-30)
BUN 47 H mg/dl
(7-17)
Creatinine 2.3 H mg/dL
(0.6-1.0)
Glucose 362 H mg/dl
(70-99)
Lactic Acid 9.2 H* mmol/L
(0.7-2.0)
Calcium 6.3 L* mg/dl
(8.4-10.2)
Total Bilirubin 1.7 H mg/dl
(0.2-1.3)
AST 388 H U/L
(14-36)
ALT 52 H U/L
(0-35)
Creatine Kinase 403 H U/L
(30-135)
Troponin I 1.280 H* ng/ml
Total Protein 3.6 L g/dl
(6.3-8.2)
Albumin 1.4 L g/dl
(3.5-5.0)
TSH (Reflex) 5.93 H uIU/ml
(0.47-4.68)
Free T4 0.51 L ng/dl
(0.78-2.19)
POC Glucose 308 H mg/dl
(70-99)
05/02/25 15:09
05/02/25 18:13
Vital Signs
Initial and Last Documented VS:
Initial Vital Signs
Temp
96.3 F L
05/02/25 14:59
Last Documented Vital Signs
Temp Pulse Resp BP
96.3 F L 94 22 79/54
05/02/25 14:59 05/02/25 15:37 05/02/25 15:37 05/02/25 15:37
MDM/Problems Addressed
MDM/Problems Addressed:
Portable chest x-ray shows the ET tube is at the tip of ania. This was when the ET tube was at 22 cm at the lip. Asked respiratory to pull back 1-1/2 to 2 cm.
Discussed patient's presentation with granddaughter, son-in-law and daughter. Her daughter is power of insurance attorney. We discussed goals of care. Patient's daughter would like to consult with other siblings before making any decision on CODE STATUS.
0403: Pt's daughter, Irene, who is medical POA has arrived. She was updated and spent time with her mother. She feels patient would not want to be kept alive under the circumstances and she would want care withdrawn. We will follow her
wishes.
1649: Pt was extubated as family wished. Morphine given for comfort. Poor resp effort after extubation. Pt was pronounced at 1632----no spont respiratory effort, no heart sounds, pupils fixed and dilated.
Discussed with Dr. Reyes who will certify
Discussed with ME, revenue investigator Jorge Chirinos, who declines jurisdiction
*Radiology
Radiology exam reviewed: preliminary read by ED provider (Lungs clear, ET tube at the ania)
*Pulse Oximetry
SaO2: 95
Oxygen Mode of Delivery: Resuscitation bag
Patient hypoxic: no
*EKG
Interpreted by ED Provider?: Yes
Interpretation: abnormal
Heart Rate: 102
Rate: tachycardiac
Rhythm: a-fib
QRS Pattern: low voltage
Ischemia: T-wave inversion (lateral )
*Event Producer Interpretation
Rate: tachycardiac
Interpretation: abnormal
Rhythm: a-fib
*Critical Care Note
Total Time (30-74mins, 75-104mins- exclusive of procedures): 35 min
comment:
Critical care statement: A total of 35 minutes of critical care time was provided for this patient. This includes management of unstable vital signs, evaluation of the patient at bedside, reviewing the patient�s pertinent medical records, discussion
with consultants, review of old EKGs and review of pertinent medical records. This time with separate from time utilized to perform the aforementioned documented procedures
ED Attending Note
-
Portions of this chart may have been created with voice recognition software.� Occasional wrong word or��sound alike� substitutions may have occurred due to the inherent limitations of voice recognition software.
Discharge Plan
Departure
Patient Disposition:
Date of Disposition: 05/02/25
Time of Disposition: 16:50
Discharge Problem:
Cardiac arrest, Acute hyperkalemia, Acute renal failure (ARF), Acute anemia, Non-ST elevation ME (NSTEMI)
Prescriptions:
No Action
isosorbide mononitrate 60 mg Tablet Extended Release 24 Hr
60 mg PO Q48H
Patient Comments:
07/22/24: prescribed for pt. to take daily but pt. takes more sporadically. Family estimates every other day
oxycodone-acetaminophen 10-325 mg Tablet
1 tab PO DAILYPRN PRN (Reason: severe pain)
acetaminophen 325 mg tablet
650 mg PO Q6HPRN PRN (Reason: mild pain)
aspirin [Children's Aspirin] 81 mg Tablet,Chewable
81 mg PO DAILY Qty: 100 0RF
guaifenesin 100 mg/5 mL Liquid
200 mg PO Q4HPRN PRN (Reason: cough)
guaifenesin [Mucinex] 1,200 mg Tablet Extended Release 12hr
1,200 mg PO BIDPRN PRN (Reason: cough/congestion )
temazepam 15 mg capsule
30 mg PO HS
amlodipine 2.5 mg Tablet
2.5 mg PO DAILY 30 Days Qty: 30 0RF
Eliquis 2.5 mg Tablet
2.5 mg PO BID Qty: 60 0RF
metoprolol succinate 25 mg Tablet Extended Release 24 Hr
12.5 mg PO DAILY 30 Days Qty: 15 0RF
Patient Comments:
07/22/24: prescribed for pt. to take daily but pt. takes more sporadically. Family estimates every other day
Referrals:
UNKNOWN - PT DOES,NOT KNOW [Family Provider]
Interventions
Interventions:
*Risk Screen - Suicide Last Done: 05/02/25 15:03
*Neglect/Abuse Screening Last Done: 05/02/25 15:03
*ED COVID-19 Vaccine History Last Done: 05/02/25 15:03
*ED Influenza Vaccine History Last Done: 05/02/25 15:03
*Nursing Disposition Last Done: 05/02/25 17:09
ED- Cardiac Assessment Last Done: 05/02/25 16:19
ED- Pulmonary Assessment Last Done: 05/02/25 16:19
Discharge Date and Time
Discharge Date/Time: 05/02/25 17:14
Print Language: UPPER SORBIAN
[2025-05-02 15:28] VITALS: BP 45/35
[2025-05-02 15:29] LABS: APTT 65.7 Sec (23.4-35.0)
[2025-05-02 15:30] VITALS: BP 56/41
[2025-05-02 15:32] VITALS: BP 57/38
[2025-05-02 15:35] LABS: Hematocrit 22.0 % (37.0-47.0); Hemoglobin 6.8 g/dL (12.0-16.0); Mean Corp Hgb Conc. 30.9 g/dL (33.0-37.0); Mean Corpuscular Volume 107.3 fL (81.0-99.0); Platelet Count 208 10^3/uL (130-400); Red Cell Dist. Width 19.3 % (11.5-14.5)
[2025-05-02 15:37] VITALS: BP 79/54
[2025-05-02 15:40] LABS: ALT (SGPT) 52 U/L (0-35); AST (SGOT) 388 U/L (14-36); Albumin 1.4 g/dl (3.5-5.0); Alkaline Phosphatase 89 U/L (38-126); Blood Urea Nitrogen 47 mg/dl (7-17); Calcium 6.3 mg/dl (8.4-10.2); Carbon Dioxide 6 mmol/L (22-30); Chloride 107 mmol/L (98-107); Glucose 362 mg/dl (70-99); Potassium 6.1 mmol/L (3.5-5.1); Sodium 132 mmol/L (135-145); Total Protein 3.6 g/dl (6.3-8.2)
[2025-05-02 15:44] LABS: eGFR 19.94
[2025-05-02 15:48] LABS: Troponin I 1.280 ng/ml
[2025-05-02] MEDS: PITRESSIN 100 IV (15:58)
[2025-05-02] MEDS: MORPHINE SULFATE 4 MG IV (16:10)
[2025-05-02 16:40] LABS: Absolute Neutrophils -Man Diff 1.4 10^3/uL (1.4-6.5); Anisocytosis Slight; Normal RBC Morphology No; Platelets Checked Yes
[2025-05-02 16:41] LABS: Hypochromasia Slight; Polychromasia Slight; Total Cells Counted 100
--- NOTE | 2025-05-02 16:58 | PTCARENOTE ---
GOL notified. patient not candidate.
== END 2025-05-02 17:14 | disposition expired ==
LOC: EMR 14:58
PROVIDERS: EMERGENCY PHYSICIAN Emergency Medicine
DX: I46.9 Cardiac arrest, cause unspecified (principal); E87.5 Hyperkalemia; N17.9 Acute kidney failure, unspecified; D64.9 Anemia, unspecified; I21.4 Non-ST elevation (NSTEMI) myocardial infarction; I48.91 Unspecified atrial fibrillation; Z79.82 Long term (current) use of aspirin; Z79.01 Long term (current) use of anticoagulants
CPT/HCPCS: 99291; 96374; 96375 ×2; 71045; 80053; 82550; 82962; 83605; 84439; 84443; 84484; 85025; 85730; 93005